=== PATIENT | female | born 1960 | race African-American/Black ===

== ENCOUNTER 2016-09-13 18:34 | Emergency (ER) | payer MEDICARE, OTHER ==
[~2016-09-13] VITALS: Ht 152.4 cm; Wt 80.0 kg
[~2016-09-13 18:34] MED LIST: ALBU1AER INH; AMLO5TAB22 PO; ASPI325T PO; CALC600T12 PO; CARD120C4 PO; CARV3.12 PO; CLOP75 PO; DOXY100T PO; ESCI10TA PO; FERR324T4 PO; FURO20 PO; GABA300C3 PO; HYDR-3129 PO; LEVA750T PO; LOSA25TA31 PO; METF-324 PO; PANT20 PO; PRED20 PO; ROSU5 PO; SPIR50 PO; SYNT75TA PO; TEMA30CA PO; TIZA4CAP PO; VITA200017 PO; ZOFR4TAB3 SL
[2016-09-13 18:37] VITALS: BP 174/111; PULSE 93; RESP 24; TEMP 98.4; O2SAT 93
== END 2016-09-13 20:00 | disposition left against medical advice (07) ==
LOC: NETRI 18:34
DX: R68.89 Other general symptoms and signs (principal)
CPT/HCPCS: 99281

== ENCOUNTER 2016-10-15 17:31 | Emergency (ER) | payer MEDICARE, OTHER ==
[~2016-10-15] VITALS: Ht 152.4 cm; Wt 82.5 kg
[2016-10-15 17:35] VITALS: BP 161/94; PULSE 103; RESP 24; TEMP 101.6; O2SAT 97
[2016-10-15] MEDS ORDERED: SODIUM CHLOR 0.9% 1000 ML INJ 700 ML IV ONE (18:14)
[2016-10-15] MEDS ORDERED: SODIUM CHLOR 0.9% 1000 ML INJ 1,000 ML IV ONE ×2 (18:14)
[2016-10-15] MEDS ORDERED: ACETAMINOPHEN 325 MG TAB PO ONE (18:15)
[2016-10-15] MEDS ORDERED: ONDANSETRON HCL 4 MG/2 ML VIAL IV PUSH ONE (18:15)
--- NOTE | 2016-10-15 18:22 | PD ---
HPI . Chest pain Chief Complaint: Chest Pain Time Seen by Provider: 18:08 Travel History International Travel<30 days: No Contact w/Intl Traveler<30days: No Traveled to known affect area: No History of Present Illness HPI Patient presents with a chief complaint of chest pain that started at 10 AM. She states that it is getting worse rather than better. She states that it is heavy and rates it as a 10 out of 10 currently. It has been unrelieved by 2 sublingual nitroglycerin at home. Her chest pain is associated with nausea, weakness, myalgias, shortness of breath and fever. She denies any known sick contacts. Patient reports a history of 9 previous MIs with 8 stents. Further medical history includes hypertension, diabetes, hyperlipidemia, COPD both thyroidism. [id number]: Chest QUALITY: Heavy SEVERITY:10/10 DURATION: Since 10 AM TIMING: Constant CONTEXT: Numerous chronic medical problems MODIFYING FACTORS: Unrelieved by nitroglycerin ASSOCIATED SYMPTOMS: Associated with fever, nausea, weakness, shortness of breath and myalgias PFSH Past Medical History Arthritis: Yes Autoimmune Disease: No Blood Disorders: No Anxiety: No Depression: No Heart Rhythm Problems: No Cancer: No Cardiac Catheterization: Yes (SEVERAL) Cardiovascular Problems: Yes High Cholesterol: Yes Chest Pain: Yes Congestive Heart Failure: No Cerebrovascular Accident: Yes (2008) Diabetes: Yes Patient Takes Glucophage: Yes (10/14/16 2100) Diminished Hearing: No Endocrine: Yes Gastrointestinal Disorders: No GERD: Yes Genitourinary: No Headaches: Yes Hypertension: Yes Immune Disorder: No Implanted Vascular Access Dvce: Yes Musculoskeletal: Yes (BULGING DISCS IN BACK) Neurologic: Yes Psychiatric: No Reproductive: No Respiratory: Yes Immunizations Current: Yes Migraines: Yes Myocardial Infarction: Yes (x9) Sickle Cell Disease: No Thyroid Disease: No Tetanus Vaccination: < 5 Years ?: Not Menopausal: Yes : 2 Para: 2 Past Surgical History Abdominal Surgery: Yes Appendectomy: Yes Body Medical Devices: CORONARY STENT(S) Cardiac Surgery: Yes Coronary Artery Bypass Graft: No Coronary Stent: Yes (X 8) Tonsillectomy: No Other Surgery: Yes Family History Family Myocardial Infarction: Yes Social History Alcohol Use: No Tobacco Use: No Substance Use: No Allergies-Medications (Allergen,Severity, Reaction): Coded Allergies: No Known Allergies (Verified , 10/15/16) Reported Meds & Prescriptions Reported Meds & Active Scripts Active Zofran Odt (Ondansetron Odt) 4 Mg Tab 4 Mg SL Q6HR PRN Reported Proair Hfa 8.5 GM Inh (Albuterol Sulfate) 90 Mcg/Act Aer 1 Puff INH Q4H PRN 108 mcg/actuation Amlodipine (Amlodipine Besylate) 5 Mg Tab 5 Mg PO DAILY Aspirin 325 Mg Tab 325 Mg PO DAILY Calcium (Calcium Carbonate) 600 Mg Tab 1,200 Mg PO BID Diltiazem CD 24 HR 120 Mg Caper 120 Mg PO DAILY Carvedilol 3.125 Mg Tab 3.125 Mg PO BID Vitamin D-3 (Cholecalciferol) 2,000 Unit Tab 2,000 Units PO DAILY Plavix (Clopidogrel Bisulfate) 75 Mg Tab 75 Mg PO DAILY Escitalopram (Escitalopram Oxalate) 10 Mg Tab 10 Mg PO DAILY Ferrous Sulfate 325 Mg Tab 325 Mg PO DAILY Lasix (Furosemide) 40 Mg Tab 40 Mg PO DAILY Gabapentin 300 Mg Cap 300 Mg PO Q8HR [place] (Hydrocodone-Acetaminophen) 10-325 Mg Tab 1 Tab PO Q12HR PRN Losartan (Losartan Potassium) 25 Mg Tab 25 Mg PO DAILY Metformin ER (Metformin HCl) 1,000 Mg Artemio 1,000 Mg PO BID With evening meal Zofran Odt (Ondansetron Odt) 4 Mg Tab 4 Mg SL Q6HR PRN Pantoprazole (Pantoprazole Sodium) 20 Mg Tab 20 Mg PO DAILY Synthroid (Levothyroxine Sodium) 75 Mcg Tab 75 Mcg PO DAILY Restoril (Temazepam) 30 Mg Cap 30 Mg PO HS PRN Crestor (Rosuvastatin Calcium) 20 Mg Tab 20 Mg PO HS Tizanidine (Tizanidine HCl) 4 Mg Tab 4-8 Mg PO TID Review of Systems Except as stated in HPI: all other systems reviewed are Neg General / Constitutional: Positive: Fever, Chills HENT: No: Sore Throat, Rhinorrhea, Congestion Cardiovascular: Positive: Chest Pain or Discomfort Respiratory: Positive: Shortness of Breath, No: Cough Gastrointestinal: Positive: Nausea, No: Vomiting, Diarrhea Genitourinary: No: Urgency, Frequency, Dysuria Musculoskeletal: Positive: Myalgias, Weakness Physical Exam Narrative GENERAL: Pleasant woman who is in no acute distress. SKIN: Warm and dry. HEAD: Atraumatic. Normocephalic. EYES: Pupils equal and round. ENT: No nasal bleeding or discharge. Mucous membranes pink and moist. NECK: Trachea midline. Neck is supple with no cervical lymphadenopathy. CARDIOVASCULAR: Regular rate and rhythm. Heart sounds are normal. RESPIRATORY: No accessory muscle use. Lungs sound clear with full air movement throughout. GASTROINTESTINAL: Abdomen soft, non-tender, nondistended. MUSCULOSKELETAL: No obvious deformities. No edema. NEUROLOGICAL: Awake and alert. No obvious cranial nerve deficits. Motor grossly within normal limits. Normal speech. PSYCHIATRIC: Appropriate mood and affect; insight and judgment normal. Data Data Last Documented VS Vital Signs Date Time Temp Pulse Resp B/P Pulse Ox O2 Delivery O2 Flow Rate FiO2 10/15/16 18:31 96 10/15/16 18:07 94 18 Room Air 10/15/16 17:35 101.6 161/94 Orders Complete Blood Count With Diff (10/15/16 18:14) Comprehensive Metabolic Panel (10/15/16 18:14) Lactic Acid Sepsis Protocol (10/15/16 18:14) Ckmb (Isoenzyme) Profile (10/15/16 18:14) Troponin I (10/15/16 18:14) Urinalysis - C+S If Indicated (10/15/16 18:14) Influenzae A/B Antigen (10/15/16 18:14) Blood Culture (10/15/16 18:14) Chest, Single Ap (10/15/16 18:14) Ecg Monitoring (10/15/16 18:14) Iv Access Insert/Monitor (10/15/16 18:14) Oximetry (10/15/16 18:14) Acetaminophen (Tylenol) (10/15/16 18:15) Sodium Chlor 0.9% 1000 Ml Inj (Ns 1000 M (10/15/16 18:14) Sodium Chlor 0.9% 1000 Ml Inj (Ns 1000 M (10/15/16 18:14) Sodium Chlor 0.9% 1000 Ml Inj (Ns 1000 M (10/15/16 18:14) Ondansetron Inj (Zofran Inj) (10/15/16 18:15) CKMB (10/15/16 18:20) CKMB% (10/15/16 18:20) Labs Laboratory Tests Test 3/20/17 3/20/17 3/20/17 18:20 18:28 18:48 White Blood Count 12.1 TH/MM3 Red Blood Count 4.27 MIL/MM3 Hemoglobin 10.3 GM/DL Hematocrit 33.0 % Mean Corpuscular Volume 77.3 FL Mean Corpuscular Hemoglobin 24.1 PG Mean Corpuscular Hemoglobin 31.2 % Concent Red Cell Distribution Width 16.5 % Platelet Count 255 TH/MM3 Mean Platelet Volume 8.9 FL Neutrophils (%) (Auto) 77.1 % Lymphocytes (%) (Auto) 15.4 % Monocytes (%) (Auto) 6.4 % Eosinophils (%) (Auto) 0.7 % Basophils (%) (Auto) 0.4 % Neutrophils # (Auto) 9.3 TH/MM3 Lymphocytes # (Auto) 1.9 TH/MM3 Monocytes # (Auto) 0.8 TH/MM3 Eosinophils # (Auto) 0.1 TH/MM3 Basophils # (Auto) 0.0 TH/MM3 CBC Comment AUTO DIFF Differential Comment AUTO DIFF CONFIRMED Platelet Estimate NORMAL Platelet Morphology Comment NORMAL Sodium Level 139 MEQ/L Potassium Level 3.8 MEQ/L Chloride Level 98 MEQ/L Carbon Dioxide Level 30.2 MEQ/L Anion Gap 11 MEQ/L Blood Urea Nitrogen 12 MG/DL Creatinine 1.06 MG/DL Estimat Glomerular Filtration 64 ML/MIN Rate Random Glucose 99 MG/DL Calcium Level 8.7 MG/DL Total Bilirubin 0.5 MG/DL Aspartate Amino Transf 14 U/L (AST/SGOT) Alanine Aminotransferase 15 U/L (ALT/SGPT) Alkaline Phosphatase 96 U/L Total Creatine Kinase 163 U/L Creatine Kinase MB LESS THAN 0.5 NG/ML Troponin I LESS THAN 0.02 NG/ML Total Protein 7.9 GM/DL Albumin 3.7 GM/DL Lactic Acid Level 1.1 mmol/L Urine Color LIGHT-YELLOW Urine Turbidity CLEAR Urine pH 8.5 Urine Specific [place] 1.012 Urine Protein TRACE mg/dL Urine Glucose (UA) NEG mg/dL Urine Ketones NEG mg/dL Urine Occult Blood NEG Urine Nitrite NEG Urine Bilirubin NEG Urine Urobilinogen LESS THAN 2.0 MG/DL Urine Leukocyte Esterase NEG Urine RBC 2 /hpf Urine WBC LESS THAN 1 /hpf Urine Squamous Epithelial <1 /hpf Cells Urine Mucus FEW /lpf Microscopic Urinalysis Comment CATH-CULT NOT IND MDM Medical Decision Making Medical Screen Exam Complete: Yes Emergency Medical Condition: Yes Interpretation(s) EKG shows a sinus rhythm with no ST segment elevation or depression. Her EKG is unchanged from previous. Differential Diagnosis Differential diagnosis of chest pain includes but is not limited to musculoskeletal pain, pulmonary embolism, acute coronary syndrome, pneumonia, pleurisy Differential diagnosis of fever includes but is not limited to viral illness, strep throat, otitis media, pneumonia, sepsis, UTI Narrative Course Patient presents for chest pain associated with fever, shortness of breath, nausea, weakness and myalgias. She'll be worked up for possible sepsis and she will also be worked up to rule out ACS. Last Impressions Chest X-Ray 10/15/[id number] Signed Impressions: Service Date/Time: Saturday, October 15, 2016 18:26 - CONCLUSION: No acute disease. No significant change has occurred. Smith Morales MD The chest x-ray was independently viewed by me. Flu screen is negative. CBC & BMP Diagram 10/15/16 18:20 Cardiac enzymes are negative. UA is negative. Lactic acid is normal. This patient presents with chest pain and fever. Her workup in the emergency department has been negative. She looks good. I will discharge her to home. Diagnosis Primary Impression: Chest pain Qualified Code: R07.9 - Chest pain, unspecified type Additional Impression: Viral syndrome Patient Instructions: General Instructions, Viral Syndrome (DC) Scripts Ondansetron Odt (Zofran Odt)4 Mg Tab4 Mg SL Q6HR PRN (Nausea/Vomiting) #30 TAB Ref 0 Prov:Haleigh Fletcher MD 10/15/16 Disposition: 01 DISCHARGE HOME Condition: Stable Haleigh Fletcher MD Oct 15, 2016 18:22
[2016-10-15 18:31] VITALS: O2SAT 96
[2016-10-15] MEDS ORDERED: TIZA4TAB PO (18:38)
--- NOTE | 2016-10-15 18:38 | RADRPT ---
EXAM DATE/TIME: 10/15/2016 18:26 [facility] COMPARISON: CHEST SINGLE AP, July 12, 2016, 7:24. INDICATIONS : Chest pain, short of breath MEDICAL HISTORY : Cardiovascular disease. SURGICAL HISTORY : Coronary artery stent. ENCOUNTER: Initial ACUITY: 1 day PAIN SCORE: 9/10 LOCATION: chest FINDINGS: A single view of the chest demonstrates the lungs to be symmetrically aerated without evidence of mas s, infiltrate or effusion. The heart size is enlarged but stable.. Osseous structures are intact. CONCLUSION: No acute disease. No significant change has occurred. Smith Morales MD on October 15, 2016 at 18:36 Board Certified Radiologist. This report was verified electronically.
[2016-10-15 18:47] LABS: AUTOMATED NEUTROPHIL # 9.3 TH/MM3 (1.8-7.7); BASOPHIL % 0.4 % (0.0-2.0); EOSINOPHIL # 0.1 TH/MM3 (0-0.4); EOSINOPHIL % 0.7 % (0.0-4.0); LYMPH % 15.4 % (9.0-44.0); LYMPHOCYTE # 1.9 TH/MM3 (1.0-4.8); MEAN CELL VOLUME 77.3 FL (80.0-100.0); MEAN CORPUSCULAR HEMOGLOBIN 24.1 PG (27.0-34.0); MEAN CORPUSCULAR HGB CONC 31.2 % (32.0-36.0); MONO % 6.4 % (0.0-8.0); NEUT % 77.1 % (16.0-70.0); PLATELET COUNT 255 TH/MM3 (150-450); RED BLOOD COUNT 4.27 MIL/MM3 (4.00-5.30); RED CELL DISTRIBUTION WIDTH 16.5 % (11.6-17.2); WHITE BLOOD COUNT 12.1 TH/MM3 (4.0-11.0)
[2016-10-15] MEDS ORDERED: CHOL1TAB42 PO (18:48)
[2016-10-15] MEDS ORDERED: ROSU20 PO (18:48)
[2016-10-15] MEDS ORDERED: HYDR-3366 PO (18:48)
[2016-10-15] MEDS ORDERED: REST30CA PO (18:48)
[2016-10-15] MEDS ORDERED: ZOFR4TAB3 SL ×2 (18:48→19:23)
[2016-10-15] MEDS ORDERED: DILT-60 PO (18:48)
[2016-10-15] MEDS ORDERED: GABA300C5 PO (18:48)
[2016-10-15] MEDS ORDERED: METF-382 PO (18:48)
[2016-10-15] MEDS ORDERED: LOSA25TA PO (18:48)
[2016-10-15] MEDS ORDERED: ALBUAER3 INH (18:48)
[2016-10-15] MEDS ORDERED: ESCI10TA PO (18:48)
[2016-10-15] MEDS ORDERED: ASPI325T PO (18:48)
[2016-10-15] MEDS ORDERED: CALC600T25 PO (18:48)
[2016-10-15] MEDS ORDERED: AMLO5TAB2 PO (18:48)
[2016-10-15] MEDS ORDERED: FURO1TAB60 PO (18:48)
[2016-10-15] MEDS ORDERED: CARV3.12 PO (18:48)
[2016-10-15] MEDS ORDERED: PLAV75TA29 PO (18:48)
[2016-10-15] MEDS ORDERED: LEVO.075 PO (18:48)
[2016-10-15] MEDS ORDERED: FERR325T PO (18:48)
[2016-10-15] MEDS ORDERED: PANT20TA2 PO (18:48)
[2016-10-15 18:50] LABS: HEMO FLAGS AUTO DIFF
[2016-10-15 18:59] LABS: ANION GAP 11 MEQ/L (5-15); AST (GOT) 14 U/L (15-37); BICARBONATE 30.2 MEQ/L (21.0-32.0); BLOOD UREA NITROGEN 12 MG/DL (7-18); CHLORIDE 98 MEQ/L (98-107); GLOMERULAR FILTRATION RATE 64 ML/MIN (>89); POTASSIUM 3.8 MEQ/L (3.5-5.1); SODIUM (NA) 139 MEQ/L (136-145)
[2016-10-15 19:04] LABS: ALKALINE PHOSPHATASE 96 U/L (45-117); ALT (GPT) 15 U/L (10-53); CREATINE KINASE 163 U/L (26-192); TOTAL BILIRUBIN ADULT 0.5 MG/DL (0.2-1.0)
[2016-10-15 19:12] LABS: BLOOD, URINE NEG (NEG); GLUCOSE,URINE NEG (NEG); KETONE, URINE NEG (NEG); MUCUS URINE FEW /lpf (OCC); NITRITE,URINE NEG (NEG); PH, URINE 8.5 (5.0-8.5); SQUAMOUS EPITHELIAL CELL URINE <1 /hpf (0-5); URINE COLOR LIGHT-YELLOW (YELLW/STRAW)
[2016-10-15 19:15] LABS: COMMENT (UR) CATH-CULT NOT IND; CULTURE IF INDICATED CATH CULTURE NOT IND
[2016-10-15 19:16] LABS: CKMB LESS THAN 0.5 NG/ML (0.5-3.6)
[2016-10-15 19:21] LABS: PLATELET ESTIMATE SMEAR NORMAL (NORMAL); PLATELET MORPHOLOGY NORMAL (NORMAL); SCAN/DIFF AUTO DIFF CONFIRMED
[2016-10-15 20:05] VITALS: BP 132/80; RESP 16; TEMP 99
--- NOTE | 2016-10-16 10:13 | EKG ---
Date Performed: 10/15/2016 Time Performed: 18:06:03 PTAGE: 56 years EKG: Sinus rhythm BORDERLINE LEFT AXIS DEVIATION NONSPECIFIC T-WAVE ABNORMALITY BORDERLINE ECG INTERPRETATION BASED ON A DEFAULT AGE OF 38 YEARS PREVIOUS TRACING : 07/12/2016 06.41 DOCTOR: Álvaro Ambriz Interpretating Date/Time 10/16/2016 10:12:15
== END 2016-10-15 20:55 | disposition home or self-care (01) ==
LOC: NEPA 17:31
DX: R07.9 Chest pain, unspecified (principal); B34.9 Viral infection, unspecified; R94.31 Abnormal electrocardiogram [ECG] [EKG]; J44.9 Chronic obstructive pulmonary disease, unspecified; I10 Essential (primary) hypertension; E11.9 Type 2 diabetes mellitus without complications; I25.2 Old myocardial infarction; Z95.5 Presence of coronary angioplasty implant and graft; Z79.84 Long term (current) use of oral hypoglycemic drugs
CPT/HCPCS: 71010; 80053; 81001; 82550; 82552; 83605; 84484; 85025; 87040; 87804; 93005; 96361; 96374; 99285; J2405; J7030

== ENCOUNTER 2016-10-24 19:31 | Inpatient (IN) | payer MEDICARE, OTHER ==
[2016-10-24] VITALS (14 sets, daily range): BP systolic 81–144; BP diastolic 61–79; PULSE 74–84; RESP 16–27; TEMP 98.2; O2SAT 95–100
[~2016-10-24] VITALS: Ht 165.1 cm; Wt 93.6 kg
[~2016-10-24 19:31] MED LIST changes: -ALBU1AER INH; +ALBUAER3 INH; +AMLO5TAB2 PO; -AMLO5TAB22 PO; -CALC600T12 PO; +CALC600T25 PO; -CARD120C4 PO; +CHOL1TAB42 PO; -CLOP75 PO; +DILT-60 PO; -DOXY100T PO; -FERR324T4 PO; +FERR325T PO; +FURO1TAB60 PO; -FURO20 PO; -GABA300C3 PO; +GABA300C5 PO; -HYDR-3129 PO; +HYDR-3366 PO; -LEVA750T PO; +LEVO.075 PO; +LOSA25TA PO; -LOSA25TA31 PO; -METF-324 PO; +METF-382 PO; -PANT20 PO; +PANT20TA2 PO; +PLAV75TA29 PO; -PRED20 PO; +REST30CA PO; +ROSU20 PO; -ROSU5 PO; -SPIR50 PO; -SYNT75TA PO; -TEMA30CA PO; -TIZA4CAP PO; +TIZA4TAB PO; -VITA200017 PO
[2016-10-24] MEDS ORDERED: ETOMIDATE 20 MG/10 ML VIAL ONE (19:37)
[2016-10-24] MEDS ORDERED: ROCURONIUM INJ 50 MG/5 ML VIAL ONE (19:38)
[2016-10-24] MEDS ORDERED: AZITHROMYCIN INJ 500 MG in SODIUM CHLOR 0.9% 250 ML INJ 250 ML IV STA (19:49)
[2016-10-24] MEDS ORDERED: CEFEPIME INJ 2,000 MG in SODIUM CHLORIDE 0.9% INJ 100 ML IV STA (19:49)
--- NOTE | 2016-10-24 19:59 | PD ---
HPI Chief Complaint: Code Blue Time Seen by Provider: 19:49 Travel History International Travel<30 days: No Contact w/Intl Traveler<30days: No (unable to assess at time of arrival secondary to intubation) History of Present Illness HPI 56-year-old female arrives following cardiac arrest. Total time of ACLS resuscitation with chest compressions approximated to be 30 minutes per EMS. The patient complained of extreme short of breath followed by loss of consciousness and the family called EMS. The patient had been unresponsive for about 2-3 minutes prior to EMS arrival. Immediately he began ACLS protocol. Chest compressions started. A Combitube was placed. The patient received 4 rounds of epi and 100 mEq of a percent bicarbonate, 2 mg Narcan and calcium was also administered. The patient remained asystolic and tell ER arrival where she had return of circulation on the ramp into the ER. Upon arrival heart rate about 150 with a blood pressure about 140/80. O2 sat 99% with Combitube. EMS heard rales on their exam. When the patient arrived a Combitube was placed with a 7.5 endotracheal tube without difficulty. She has had pulses throughout her ER stay. The blood pressure increased to about 220/147 and the heart rate was 155 or so. EKG revealed a supraventricular irregular tachycardia. She received 20 mg of Cardizem and the heart rate decreased to about 80s the blood pressure decreased to about 140/80. PFSH Past Medical History Arthritis: Yes Autoimmune Disease: No Blood Disorders: No Anxiety: No Depression: No Heart Rhythm Problems: No Cancer: No Cardiac Catheterization: Yes (SEVERAL) Cardiovascular Problems: Yes High Cholesterol: Yes Chest Pain: Yes Congestive Heart Failure: No Cerebrovascular Accident: Yes (2008) Diabetes: Yes Diminished Hearing: No Endocrine: Yes Gastrointestinal Disorders: No GERD: Yes Genitourinary: No Headaches: Yes Hypertension: Yes Immune Disorder: No Implanted Vascular Access Dvce: Yes Musculoskeletal: Yes (BULGING DISCS IN BACK) Neurologic: Yes Psychiatric: No Reproductive: No Respiratory: Yes Immunizations Current: Yes Migraines: Yes Myocardial Infarction: Yes (x9) Sickle Cell Disease: No Thyroid Disease: No Menopausal: Yes : 2 Para: 2 Past Surgical History Abdominal Surgery: Yes Appendectomy: Yes Body Medical Devices: CORONARY STENT(S) Cardiac Surgery: Yes Coronary Artery Bypass Graft: No Coronary Stent: Yes (X 8) Tonsillectomy: No Other Surgery: Yes Social History Alcohol Use: No Tobacco Use: No Substance Use: No Allergies-Medications (Allergen,Severity, Reaction): Coded Allergies: No Known Allergies (Verified , 10/15/16) Reported Meds & Prescriptions Reported Meds & Active Scripts Active Reported Proair Hfa 8.5 GM Inh (Albuterol Sulfate) 90 Mcg/Act Aer 1 Puff INH Q4H PRN 108 mcg/actuation Amlodipine (Amlodipine Besylate) 5 Mg Tab 5 Mg PO DAILY Aspirin 325 Mg Tab 325 Mg PO DAILY Calcium (Calcium Carbonate) 600 Mg Tab 1,200 Mg PO BID Diltiazem CD 24 HR 120 Mg Caper 120 Mg PO DAILY Carvedilol 3.125 Mg Tab 3.125 Mg PO BID Vitamin D-3 (Cholecalciferol) 2,000 Unit Tab 2,000 Units PO DAILY Plavix (Clopidogrel Bisulfate) 75 Mg Tab 75 Mg PO DAILY Escitalopram (Escitalopram Oxalate) 10 Mg Tab 10 Mg PO DAILY Ferrous Sulfate 325 Mg Tab 325 Mg PO DAILY Lasix (Furosemide) 40 Mg Tab 40 Mg PO DAILY Gabapentin 300 Mg Cap 300 Mg PO Q8HR [place] (Hydrocodone-Acetaminophen) 10-325 Mg Tab 1 Tab PO Q12HR PRN Losartan (Losartan Potassium) 25 Mg Tab 25 Mg PO DAILY Metformin ER (Metformin HCl) 1,000 Mg Artemio 1,000 Mg PO BID With evening meal Zofran Odt (Ondansetron Odt) 4 Mg Tab 4 Mg SL Q6HR PRN Pantoprazole (Pantoprazole Sodium) 20 Mg Tab 20 Mg PO DAILY Synthroid (Levothyroxine Sodium) 75 Mcg Tab 75 Mcg PO DAILY Restoril (Temazepam) 30 Mg Cap 30 Mg PO HS PRN Crestor (Rosuvastatin Calcium) 20 Mg Tab 20 Mg PO HS Tizanidine (Tizanidine HCl) 4 Mg Tab 4-8 Mg PO TID Review of Systems ROS Limitations: Intubated, Altered Mental Status Physical Exam Narrative GENERAL: 56-year-old female, severe distress, GCS 4T (eyes 1, motor 2, verbal 1) SKIN: Skin is warm/dry. HEAD: Atraumatic. Normocephalic. EYES: Pupils are approximately 2 mm. They are equal and reactive to light. ENT: Intubated with a Combitube. Edentulous. NECK: Trachea midline. No JVD. CARDIOVASCULAR: Irregular. Radial artery pulse appreciated bilaterally and at the dorsalis pedis bilaterally. RESPIRATORY: Combitube. Breath sounds present bilaterally. Coarse breath sounds bilaterally. GASTROINTESTINAL: Somewhat distended. No peritonitis. MUSCULOSKELETAL: No obvious deformities. No clubbing. No cyanosis. No edema. Right tibia intraosseous line intact. NEUROLOGICAL: GCS 4T (eyes 1 motor 2 verbal 1). The patient rotated her head once or twice during the initial resuscitation. PSYCHIATRIC: Unable to assess Data Data Last Documented VS Vital Signs Date Time Temp Pulse Resp B/P Pulse Ox O2 Delivery O2 Flow Rate FiO2 10/24/16 21:48 97 100 10/24/16 21:45 76 16 108/75 10/24/16 21:38 98.2 10/24/16 20:16 Ventilator Orders Etomidate Inj (Amidate Inj) (10/24/16 19:37) Rocuronium Inj (Zemuron Inj) (10/24/16 19:38) Chest, Single Ap (10/24/16 19:46) Complete Blood Count With Diff (10/24/16 19:49) Comprehensive Metabolic Panel (10/24/16 19:49) Prothrombin Time / Inr (Pt) (10/24/16 19:49) Act Partial Throm Time (Ptt) (10/24/16 19:49) Lactic Acid Sepsis Protocol (10/24/16 19:49) Magnesium (Mg) (10/24/16 19:49) Lipase (10/24/16 19:49) Ckmb (Isoenzyme) Profile (10/24/16 19:49) Troponin I (10/24/16 19:49) Urinalysis - C+S If Indicated (10/24/16 19:49) Blood Culture (10/24/16 19:49) Arterial Blood Gas (Abg) (10/24/16 19:49) Blood Glucose (10/24/16 19:49) Ecg Monitoring (10/24/16 19:49) Iv Access Insert/Monitor (10/24/16 19:49) Cath For Specimen (10/24/16 19:49) Oximetry (10/24/16 19:49) Oxygen Administration (10/24/16 19:49) Urinary Catheter Insert/Apply (10/24/16 19:49) Ct Brain W/O Iv Contrast(Rout) (10/24/16 19:49) Cefepime Inj (Maxipime Inj) (10/24/16 19:49) Azithromycin Inj (Zithromax Inj) (10/24/16 19:49) B-Type Natriuretic Peptide (10/24/16 19:49) Diltiazem Inj (Cardizem Inj) (10/24/16 20:00) Diltiazem Inj (Cardizem Inj) (10/24/16 20:00) Diltiazem Inj (Cardizem Inj) (10/24/16 20:00) Ct Pulmonary Angiogram (10/24/16 19:59) ^ Orogastric Tube (10/24/16 20:03) Propofol 1000 Mg/100 Ml Inj (Diprivan 10 (10/24/16 20:15) Propofol 200 Mg/20 Ml Inj (Diprivan 200 (10/24/16 20:15) Electrocardiogram (10/24/16 19:40) Furosemide Inj (Lasix Inj) (10/24/16 20:30) Urine Culture (10/24/16 19:50) Propofol 200 Mg/20 Ml Inj (Diprivan 200 (10/24/16 21:15) Lorazepam Inj (Ativan Inj) (10/24/16 21:15) CKMB (10/24/16 19:50) CKMB% (10/24/16 19:50) Sodium Chlor 0.9% 1000 Ml Inj (Ns 1000 M (10/24/16 21:30) Fosphenytoin Inj (Cerebyx Inj) (10/24/16 22:15) Admit Order (Ed Use Only) (10/24/16 21:52) Resp Ventilation- Volume (10/24/16 ) Ct Abd/Pel W Iv Contrast(Rout) (10/24/16 19:49) Labs Laboratory Tests Test 10/24/16 10/24/16 19:49 19:50 Blood Gas Puncture Site LT RADIAL Blood Gas Patient Temperature 98.6 Blood Gas HCO3 19 mmol/L Blood Gas Base Excess -8.5 mmol/L Blood Gas Oxygen Saturation 98 % Arterial Blood pH 7.14 Arterial Blood Partial 58 mmHg Pressure CO2 Arterial Blood Partial 177 mmHG Pressure O2 Arterial Blood Oxygen Content 14.8 Vol % Arterial Blood 0.2 % Carboxyhemoglobin Arterial Blood Methemoglobin 0.4 % Blood Gas Hemoglobin 10.5 G/DL Oxygen Delivery Device VENTILATOR Blood Gas Ventilator Setting VAC16/500/PEEP5 Blood Gas Inspired Oxygen 100 % White Blood Count 13.1 TH/MM3 Red Blood Count 4.11 MIL/MM3 Hemoglobin 10.2 GM/DL Hematocrit 33.2 % Mean Corpuscular Volume 80.8 FL Mean Corpuscular Hemoglobin 24.8 PG Mean Corpuscular Hemoglobin 30.7 % Concent Red Cell Distribution Width 17.2 % Platelet Count 328 TH/MM3 Mean Platelet Volume 9.2 FL Neutrophils (%) (Auto) 34.1 % Lymphocytes (%) (Auto) 60.2 % Monocytes (%) (Auto) 4.2 % Eosinophils (%) (Auto) 1.3 % Basophils (%) (Auto) 0.2 % Neutrophils # (Auto) 4.5 TH/MM3 Lymphocytes # (Auto) 7.9 TH/MM3 Monocytes # (Auto) 0.5 TH/MM3 Eosinophils # (Auto) 0.2 TH/MM3 Basophils # (Auto) 0.0 TH/MM3 CBC Comment AUTO DIFF Differential Total Cells 100 Counted Neutrophils % (Manual) 26 % Band Neutrophils % 1 % Lymphocytes % 62 % Monocytes % 5 % Eosinophils % 1 % Basophils % 1 % Neutrophils # (Manual) 4.1 TH/MM3 Myelocytes 3 % Promyelocytes 1 % Nucleated Red Blood Cells 2 /100 WBC Differential Comment FINAL DIFF MANUAL Platelet Estimate NORMAL Platelet Morphology Comment NORMAL Ovalocytes 1+ Keratocytes OCC Prothrombin Time 10.9 SEC Prothromb Time International 1.0 RATIO Ratio Activated Partial 19.6 SEC Thromboplast Time Urine Color LIGHT-YELLOW Urine Turbidity HAZY Urine pH 7.5 Urine Specific [place] 1.014 Urine Protein GREATER THAN 600 mg/dL Urine Glucose (UA) 300 mg/dL Urine Ketones TRACE mg/dL Urine Occult Blood MOD Urine Nitrite NEG Urine Bilirubin NEG Urine Urobilinogen LESS THAN 2.0 MG/DL Urine Leukocyte Esterase NEG Urine RBC 73 /hpf Urine WBC 12 /hpf Urine Squamous Epithelial 4 /hpf Cells Urine Bacteria RARE /hpf Microscopic Urinalysis Comment CATH-CULTURE IND Sodium Level 144 MEQ/L Potassium Level 3.4 MEQ/L Chloride Level 103 MEQ/L Carbon Dioxide Level 21.7 MEQ/L Anion Gap 19 MEQ/L Blood Urea Nitrogen 25 MG/DL Creatinine 1.60 MG/DL Estimat Glomerular Filtration 40 ML/MIN Rate Random Glucose 241 MG/DL Lactic Acid Level 13.1 mmol/L Calcium Level 10.1 MG/DL Magnesium Level 2.4 MG/DL Total Bilirubin 0.2 MG/DL Aspartate Amino Transf 28 U/L (AST/SGOT) Alanine Aminotransferase 23 U/L (ALT/SGPT) Alkaline Phosphatase 122 U/L Total Creatine Kinase 145 U/L Creatine Kinase MB 1.2 NG/ML Troponin I 0.08 NG/ML B-Type Natriuretic Peptide 1356 PG/ML Total Protein 7.0 GM/DL Albumin 3.1 GM/DL Lipase 91 U/L [facility] Medical Decision Making Medical Screen Exam Complete: Yes Emergency Medical Condition: Yes Medical Record Reviewed: Yes Differential Diagnosis Cardiopulmonary arrest, CHF, PE, stroke, sepsis Narrative Course CBC & BMP Diagram 10/24/16 19:50 Lactic acid 13 BNP 1326 LFTs are essentially normal Lipase normal UA: WBCs and RBCs present AB. BE -8.5 VAC 16/500/PEEP5 fio2 100% Last [address] Angiography 10/24/161958 Signed Impressions: Service Date/Time: Monday, October 24, 2016 22:13 - CONCLUSION: 1. No evidence of pulmonary embolism. 2. Diffuse infiltrates bilaterally consistent with severe pulmonary edema versus pneumonia with more consolidated areas within the lower lobes bilaterally. 2. Cardiomegaly. 3. Endotracheal tube has its tip at the level of the jody directed towards the right mainstem bronchus. This could be pulled back 2 cm for more optimal positioning. Danis Marti MD Head CT 10/24/161948 Signed Impressions: Service Date/Time: Monday, October 24, 2016 22:13 - CONCLUSION: No acute intracranial abnormality. Air-fluid level within the right maxillary sinus. Danis Marti MD Abdomen/Pelvis CT 10/24/161948 Signed Impressions: Service Date/Time: Monday, October 24, 2016 22:12 - CONCLUSION: 1. Questionable perfusion defects involving the left kidney suggesting possible mild acute pyelonephritis. Clinical correlation is recommended. 2. Tiny ventral wall hernia within the region of the umbilicus containing only fat. 3. Bilateral pulmonary infiltrates consistent with pulmonary edema versus pneumonia. 4. Pericholecystic fluid without gallbladder distention noted. If there is clinical concern for cholecystitis a hepatobiliary scan may be helpful to confirm cystic duct obstruction. Danis Marti MD Chest X-Ray 10/24/161945 Signed Impressions: Service Date/Time: Monday, October 24, 2016 20:05 - CONCLUSION: 1. Endotracheal tube appears to have its tip in the right mainstem bronchus. This could be pulled back 3 cm for more optimal positioning. 2. Cardiomegaly. 3. Moderate pulmonary vascular congestion bilaterally. Danis Marti MD EKG shows A. fib with RVR at a rate of 150 approximately The patient arrived to the ER as noted in the history present illness. Workup reveals pulmonary edema probable pneumonia. Head CT is normal. Occasional seizure-like activity has been observed, eyes rolled to the back of the patient' s head with tonic posturing lasting for about a second. Intervals between the seizure-like events very from 1 minute to a few minutes. Patient received Celebrex. Propofol drip initiated. Ativan 2 mg given twice. Versed drip started. Cefepime and azithromycin given. Patient will be placed in the [facility]. Discussed with Dr. Montero. Endotracheal tube repositioned twice with the lip line 20 cm prior to transfer upstairs. Case was discussed with Dr. Malik of cardiology who advised IV heparin. The repeat EKG showed T-wave inversions in V1 through V4 which appear new however no ST elevation was observed. IV heparin was started. Critical Care Narrative Aggregate critical care time was 60 minutes. Time to perform other separately billable procedures was not included in the critical care time. My time did not include minutes spent treating any other patients simultaneously or on activities that did not directly contribute to the patient's treatment. The services I provided to this patient were to treat and/or prevent clinically significant deterioration that could result in: Multiorgan failure, , permanent disability I provided critical care services requiring my management, as noted below: Chart data review, documentation time, medication orders and management, vital sign assessments/reviewing monitor data, ordering and reviewing lab tests, ordering and interpreting/reviewing x-rays and diagnostic studies, care of the patient and discussion of the patient with the admitting physicians. Procedures Procedure Narrative After the risks and benefits were discussed the following procedure was performed: INTUBATION: The patient was put in optimal position for the procedure. Rapid sequence intubation was initiated by me using 20 milligrams of etomidate IV and 50 milligrams of Rocuronium IV. The patient was intubated with a 7.5 cuffed endotracheal tube. Tube placement was confirmed by visualization of the tube and balloon passing through the cords, capnometry and subsequent chest x-ray. Breath sounds were equal and well aerated bilaterally postintubation. No breath sounds over stomach. Patient tolerated procedure well. Diagnosis Primary Impression: Cardiopulmonary arrest with successful resuscitation Additional Impression: Pulmonary edema Qualified Code: J81.0 - Acute pulmonary edema Admitting Information Admitting Physician Requests: Admit Vimal Addison MD Oct 24, 2016 19:59
[2016-10-24] MEDS ORDERED: DILTIAZEM HCL 25 MG/5 ML VIAL IV ONE ×2 (20:00)
[2016-10-24] MEDS ORDERED: DILTIAZEM INJ 125 MG in SODIUM CHLORIDE 0.9% INJ 100 ML IV SCH (20:00)
[2016-10-24] MEDS ORDERED: PROPOFOL 1000 MG/100 ML INJ 100 ML IV SCH (20:15)
[2016-10-24] MEDS ORDERED: PROPOFOL 200 MG/20 ML AMP IV ONE ×2 (20:15→21:15)
[2016-10-24 20:26] LABS: BLOOD GAS BASE EXCESS -8.5 mmol/L (-2-2); BLOOD GAS CARBOXYHEMOGLOBIN 0.2 % (0-4); BLOOD GAS HCO3 19 mmol/L (22-26); BLOOD GAS METHEMOGLOBIN 0.4 % (0-2); BLOOD GAS O2 HGB SATURATION 98 % (90-100); BLOOD GAS OXYGEN CONTENT 14.8 Vol % (12.0-20.0); BLOOD GAS PCO2 58 mmHg (38-42); BLOOD GAS PO2 177 mmHG (61-120); BLOOD GAS TOTAL HGB 10.5 G/DL (12.0-16.0); TEMP CORR TO 98.6
[2016-10-24 20:26] LABS: AUTOMATED NEUTROPHIL # 4.5 TH/MM3 (1.8-7.7); BASOPHIL % 0.2 % (0.0-2.0); EOSINOPHIL # 0.2 TH/MM3 (0-0.4); EOSINOPHIL % 1.3 % (0.0-4.0); HEMATOCRIT 33.2 % (35.0-46.0); LYMPH % 60.2 % (9.0-44.0); LYMPHOCYTE # 7.9 TH/MM3 (1.0-4.8); MEAN CELL VOLUME 80.8 FL (80.0-100.0); MEAN CORPUSCULAR HEMOGLOBIN 24.8 PG (27.0-34.0); MEAN CORPUSCULAR HGB CONC 30.7 % (32.0-36.0); MONO % 4.2 % (0.0-8.0); NEUT % 34.1 % (16.0-70.0); PLATELET COUNT 328 TH/MM3 (150-450); RED BLOOD COUNT 4.11 MIL/MM3 (4.00-5.30); RED CELL DISTRIBUTION WIDTH 17.2 % (11.6-17.2); WHITE BLOOD COUNT 13.1 TH/MM3 (4.0-11.0)
[2016-10-24 20:28] LABS: DRAW SITE LT RADIAL; FIO2 100 %; NUMBER OF ARTERIAL PUNCTURES 1; OXYGEN DEVICE VENTILATOR; STAT YES; ULNAR PULSE PRESENT; VENT SETTINGS VAC16/500/PEEP5
[2016-10-24 20:29] LABS: BACTERIA, URINE RARE /hpf; BLOOD, URINE MOD (NEG); COMMENT (UR) CATH-CULTURE IND; CULTURE IF INDICATED CATH CULTURE IND; GLUCOSE,URINE 300 mg/dL (NEG); KETONE, URINE TRACE mg/dL (NEG); NITRITE,URINE NEG (NEG); PH, URINE 7.5 (5.0-8.5); SQUAMOUS EPITHELIAL CELL URINE 4 /hpf (0-5); URINE COLOR LIGHT-YELLOW (YELLW/STRAW)
[2016-10-24] MEDS ORDERED: FUROSEMIDE 40 MG/4 ML VIAL IV PUSH ONE (20:30)
[2016-10-24 20:36] LABS: HEMO FLAGS AUTO DIFF
--- NOTE | 2016-10-24 20:40 | RADRPT ---
EXAM DATE/TIME: 10/24/2016 20:05 [facility] COMPARISON: CHEST SINGLE AP, October 15, 2016, 18:26. INDICATIONS : Intubation. MEDICAL HISTORY : Unobtainable. SURGICAL HISTORY : Unobtainable. ENCOUNTER: Initial ACUITY: 1 day PAIN SCORE: Non-responsive. LOCATION: Chest FINDINGS: The endotracheal tube appears to be located with its tip in the right mainstem bronchus. This could be pulled back approximately 3 cm for more optimal positioning. A nasogastric tube has its tip below the diaphragm. The heart is enlarged. Moderate pulmonary vascular congestion is noted bilaterally. CONCLUSION: 1. Endotracheal tube appears to have its tip in the right mainstem bronchus. This could be pulled b ack 3 cm for more optimal positioning. 2. Cardiomegaly. 3. Moderate pulmonary vascular congestion bilaterally. Danis Marti MD on October 24, 2016 at 20:30 Board Certified Radiologist. This report was verified electronically.
[2016-10-24 20:42] LABS: APTT (PATIENT) 19.6 SEC (24.3-30.1); PROTHROMBIN TIME - PATIENT 10.9 SEC (9.8-11.6)
[2016-10-24 21:07] LABS: ALKALINE PHOSPHATASE 122 U/L (45-117); ALT (GPT) 23 U/L (10-53); ANION GAP 19 MEQ/L (5-15); AST (GOT) 28 U/L (15-37); BICARBONATE 21.7 MEQ/L (21.0-32.0); BLOOD UREA NITROGEN 25 MG/DL (7-18); CHLORIDE 103 MEQ/L (98-107); CREATINE KINASE 145 U/L (26-192); GLOMERULAR FILTRATION RATE 40 ML/MIN (>89); MAGNESIUM 2.4 MG/DL (1.5-2.5); POTASSIUM 3.4 MEQ/L (3.5-5.1); SODIUM (NA) 144 MEQ/L (136-145); TOTAL BILIRUBIN ADULT 0.2 MG/DL (0.2-1.0)
[2016-10-24] MEDS ORDERED: LORazepam 2 MG/ML VIAL IV PUSH ONE ×2 (21:15→22:15)
[2016-10-24 21:20] LABS: CKMB 1.2 NG/ML (0.5-3.6)
[2016-10-24 21:21] LABS: BANDS 1 % (0-6); BASOPHILS 1 % (0-2); CORRECTED NUCLEATED RBC 2 /100 WBC (0-0); EOSINOPHILS 1 % (0-4); MYELOCYTES 3 % (0-0); NEUTROPHIL # MANUAL DIFF 4.1 TH/MM3 (1.8-7.7); POLYS (SEG NEUTROPHILS) 26 % (16-70); PROMYELOCYTES 1 % (0-0); WBC DIFF SAMPLE 100
[2016-10-24 21:25] LABS: KERATOCYTES OCC (NORMAL); OVALOCYTES 1+ (NORMAL)
[2016-10-24 21:26] LABS: PLATELET ESTIMATE SMEAR NORMAL (NORMAL); PLATELET MORPHOLOGY NORMAL (NORMAL)
[2016-10-24 21:27] LABS: SCAN/DIFF FINAL DIFF MANUAL
[2016-10-24] MEDS ORDERED: SODIUM CHLOR 0.9% 1000 ML INJ 1,000 ML IV ONE (21:30)
[2016-10-24] MEDS ORDERED: FOSPHENYTOIN INJ 1,000 MGPE in SODIUM CHLORIDE 0.9% INJ 50 ML IV ONE (22:15)
[2016-10-24 22:18] LABS: LACTIC ACID GHOST NOT REPORTABLE
[2016-10-24] MEDS ORDERED: IODIXANOL 320 MG/ML 10 ML VIAL (for Rad CT) IV ONE (22:27)
--- NOTE | 2016-10-24 22:39 | RADRPT ---
EXAM DATE/TIME: 10/24/2016 22:13 [facility] COMPARISON: CT BRAIN W/O CONTRAST, December 18, 2010, 11:42. INDICATIONS : Syncope and altered mental status. RADIATION DOSE: 56.35 CTDIvol (mGy) MEDICAL HISTORY : Non-responsive. SURGICAL HISTORY : Non-responsive. ENCOUNTER: Initial ACUITY: 1 day PAIN SCALE: Non-responsive LOCATION: cranial TECHNIQUE: Multiple contiguous axial images were obtained of the head. Using automated exposure control and adj ustment of the mA and/or kV according to patient size, radiation dose was kept as low as reasonably a chievable to obtain optimal diagnostic quality images. FINDINGS: CEREBRUM: The ventricles are normal for age. No evidence of midline shift, mass lesion, hemorrhage or acute in farction. No extra-axial fluid collections are seen. POSTERIOR FOSSA: The cerebellum and brainstem are intact. The 4th ventricle is midline. The cerebellopontine angle i s unremarkable. EXTRACRANIAL: The visualized portion of the orbits is intact. Air-fluid level noted within the right maxillary sinu s. SKULL: The calvaria is intact. No evidence of skull fracture. CONCLUSION: No acute intracranial abnormality. Air-fluid level within the right maxillary sinus. Danis Marti MD on October 24, 2016 at 22:36 Board Certified Radiologist. This report was verified electronically.
--- NOTE | 2016-10-24 22:47 | RADRPT ---
EXAM DATE/TIME: 10/24/2016 22:13 [facility] COMPARISON: CT PULMONARY ANGIOGRAM, January 16, 2016, 17:38. INDICATIONS : Found unresponsive. IV CONTRAST: 50 cc Visipaque (iodixanol) IV ; Cumulative dose for multiple exams. RADIATION DOSE: 15.47 CTDIvol (mGy) MEDICAL HISTORY : Non-responsive. SURGICAL HISTORY : Non-responsive. ENCOUNTER: Initial ACUITY: 1 day PAIN SCALE: Non-responsive LOCATION: Chest TECHNIQUE: Volumetric scanning of the chest was performed using a pulmonary embolism protocol MIP images were re constructed. Using automated exposure control and adjustment of the mA and/or kV according to patien t size, radiation dose was kept as low as reasonably achievable to obtain optimal diagnostic quality images. FINDINGS: There is no evidence of pulmonary embolism. The heart is enlarged. Bilateral pulmonary infiltrates are noted consistent with severe pulmonary edema versus pneumonia. More consolidated infiltrates are noted within the lower lobes bilaterally. No mediastinal, hilar or axillary lymphadenopathy is note d. The endotracheal tube is noted at the level of the jody directed towards the right mainstem bro nchus. This could be pulled back 2 cm for more optimal positioning. CONCLUSION: 1. No evidence of pulmonary embolism. 2. Diffuse infiltrates bilaterally consistent with severe pulmonary edema versus pneumonia with more consolidated areas within the lower lobes bilaterally. 2. Cardiomegaly. 3. Endotracheal tube has its tip at the level of the jody directed towards the right mainstem bron chus. This could be pulled back 2 cm for more optimal positioning. Danis Marti MD on October 24, 2016 at 22:37 Board Certified Radiologist. This report was verified electronically.
--- NOTE | 2016-10-24 22:57 | RADRPT ---
EXAM DATE/TIME: 10/24/2016 22:12 [facility] COMPARISON: CT ABDOMEN & PELVIS W CONTRAST, January 25, 2014, 3:30. INDICATIONS : Found unresponsive. ORAL CONTRAST: No oral contrast ingested. RADIATION DOSE: 17.47 CTDIvol (mGy) MEDICAL HISTORY : Non-responsive. SURGICAL HISTORY : Non-responsive. ENCOUNTER: Initial ACUITY: 1 day PAIN SCALE: Non-responsive LOCATION: Bilateral lower quadrant TECHNIQUE: Volumetric scanning of the abdomen and pelvis was performed. Using automated exposure control and ad justment of the mA and/or kV according to patient size, radiation dose was kept as low as reasonably achievable to obtain optimal diagnostic quality images. FINDINGS: Bilateral pulmonary infiltrates are noted consistent with pulmonary edema versus pneumonia. There ar e questionable areas of decreased perfusion involving the left kidney consistent with possible pyelon ephritis. Clinical correlation is recommended. There is no hydronephrosis or calcified stone on eit her side. The liver, spleen, pancreas and adrenal glands are unremarkable. The gallbladder is nondi stended. There is some pericholecystic fluid. If there is clinical concern for cholecystitis then a hepatobiliary scan may be helpful to confirm cystic duct obstruction. No bowel obstruction is noted . The abdominal aorta is calcified but is not aneurysmally dilated. The inferior vena cava is prakash l. There is no paraaortic, retroperitoneal or mesenteric lymphadenopathy. The urinary bladder is no ndistended and contains a Pablo catheter. The uterus is normal. There is a midline ventral abdomina l wall hernia in the region of the umbilicus containing only fat consistent with small hernia. CONCLUSION: 1. Questionable perfusion defects involving the left kidney suggesting possible mild acute pyeloneph ritis. Clinical correlation is recommended. 2. Tiny ventral wall hernia within the region of the umbilicus containing only fat. 3. Bilateral pulmonary infiltrates consistent with pulmonary edema versus pneumonia. 4. Pericholecystic fluid without gallbladder distention noted. If there is clinical concern for cho lecystitis a hepatobiliary scan may be helpful to confirm cystic duct obstruction. Danis Marti MD on October 24, 2016 at 22:46 Board Certified Radiologist. This report was verified electronically.
[2016-10-25] VITALS (25 sets, daily range): BP systolic 99–156; BP diastolic 68–88; PULSE 63–88; RESP 18–19; TEMP 93–98.6; O2SAT 0–100
[2016-10-25] MEDS ORDERED: HEPARIN-D5W INJ 250 ML IV SCH
[2016-10-25] MEDS ORDERED: HEPARIN SODIUM - IV 10,000 UNITS/10 ML VIAL IV ONE
--- NOTE | 2016-10-25 00:12 | HHI.HP ---
[facility] Service Critical Care Medicine Primary Care Physician Alec Vera, DO Admission Diagnosis Cardiopulmonary Arrest Diagnosis: Travel History International Travel<30 Days: No Contact w/Intl Traveler <30 Da: No (unable to assess at time of arrival secondary to intubation) Traveled to Known Affected Are: No History of Present Illness 56-year-old female with past medical history of hypertension, Coronary artery disease with multiple stents, Chronic systolic heart failure with ejection fraction of 45%, diabetes mellitus, stroke in 2008. She presented to [facility] emergency department via [facility] following asystolic cardiac arrest. Patient is not able to provide history. Some history was obtained from patient's sister, Thea Solares. Reportedly she had been having some epigastric discomfort since 10/24 afternoon as well as SOB. She was able to drive herself to the hospital to visit another family member. She later went home with her who is not in good health. She was walking down the [place] and began to call for help and then collapsed. She had previously called [facility] herself a few minutes before. Bystander CPR was not initiated. [facility] reportedly arrived 3 minutes after her collapse and she was in asystole. She was given Epi x4, bicarb x1, Narcan 2 mg , calcium, and Combitube was placed. She had ROSC upon arrival to ED. She was intubated by ED physician. She was noted to have a seizure in the ED that initially improved with ativan 2 mg IV but then recurred. She was loaded with fosphenytoin. She was given cardizem 15 mg IV for Afib RVR. She received cefepime, azithromycin 500 mg IV, and Lasix 40 g IV in the ED. CT brain is negative. CT pulmonary artery is negative for PE. There is pulmonary edema and bilateral lower lobe consolidation. Past Family Social History Allergies: Coded Allergies: No Known Allergies (Verified , 10/15/16) Past Medical History Hypertension Diabetes Hyperlipidemia Ischemic cardiomyopathy with chronic systolic heart failure with ejection fraction 45% on prior cardiac catheterization 03/02/16 Coronary artery disease with multiple prior stents Stroke in 2008 Obesity GERD CKD stage III Hypothyroidism Depression Peripheral neuropathy Past Surgical History Multiple coronary stents Appendectomy at age 6 Reported Medications Zofran 4 g of medical every 6 hours as needed for nausea Losartan 25 mg by mouth daily Gabapentin 300 mg by mouth every 8 hours Escitalopram 10 mg by mouth daily Restoril 30 g by mouth daily at bedtime as needed for sleep Albuterol 1 puff inhaled every 4 hours when necessary Carvedilol 3.125 mill grams by mouth twice a day Metformin ER 1000 mg by mouth twice a day Diltiazem CD 120 mg by mouth daily Tizanidine 4-8 mg po tid Norvasc 5 mg by mouth daily Crestor 20 mg by mouth daily at bedtime Ferrous sulfate 325 mg by mouth daily Lasix 40 mill grams by mouth daily Aspirin 325 mg by mouth daily Hanson 10/325 one by mouth every 12 hours as needed for pain Plavix 75 mg by mouth daily Pantoprazole 20 mg by mouth daily Calcium carbonate 1200 mg by mouth twice a day Synthroid 75 mg by mouth daily Vitamin D3 2000 units by mouth daily Family History Mother had an [place] at age 59 and at age 73 Her father had an myocardial infarction at age 64 and at age 69. Social History She smoked a half a pack to 1 pack of cigarettes per day for about 12-14 years. She quit smoking 12 years ago. No alcohol or illicit drug use She is and her is not well. Patient's sister, Thea Solares, states that she is patient's healthcare surrogate. Physical Exam Vital Signs Vital Signs Date Time Temp Pulse Resp B/P Pulse Ox O2 Delivery O2 Flow Rate FiO2 10/24/16 22:37 96 100 10/24/16 21:48 97 100 10/24/16 21:38 98.2 10/24/16 21:37 98.2 77 22 95/63 98 10/24/16 21:36 100 10/24/16 21:00 97 100 10/24/16 20:16 79 27 144/79 97 Ventilator 100 10/24/16 20:00 100 10/24/16 19:58 100 Ventilator 100 Physical Exam Pulse 87, sinus rhythm on the monitor blood pressure 105/67 sats 95% on ACV tidal volume 500/rate 18/P5/FiO2 100% Drips, Propofol GENERAL: Obese female who is orotracheally intubated. SKIN: Warm and dry. HEAD: Atraumatic. Normocephalic. EYES: Right pupil 4 mm and reactive, left pupil 3 mm and reactive. Mild bilateral conjunctival injection without drainage. ENT: No nasal bleeding or discharge. Mucous membranes pink and moist. NECK: Trachea midline. Unable to appreciate JVD CARDIOVASCULAR: Regular rate and rhythm, sinus rhythm on the monitor. No murmurs rubs or gallops. RESPIRATORY: Anterior Rales are heard bilaterally. There are pink/blood-tinged frothy secretions and endotracheal tube. GASTROINTESTINAL: Abdomen soft, non-tender, nondistended. Bowel sounds hypoactive MUSCULOSKELETAL: Extremities without clubbing, cyanosis. There is 1+ pedal edema bilaterally. Dorsalis pedis pulses are palpable bilaterally. NEUROLOGICAL: No eye opening. No eye deviation or nystagmus. Pupils reactive as per above, + corneal reflex, +spontaneous respirations. Withdraws to deep noxious stimulus with all extremities. Does not localize or follow commands. She does have some myoclonic movements with tactile stimulation that extinguish in ~ 5seconds. Laboratory Laboratory Tests Test 10/24/16 10/24/16 19:49 19:50 Blood Gas Puncture Site LT RADIAL Blood Gas Patient Temperature 98.6 Blood Gas HCO3 19 Blood Gas Base Excess -8.5 Blood Gas Oxygen Saturation 98 Arterial Blood pH 7.14 Arterial Blood Partial 58 Pressure CO2 Arterial Blood Partial 177 Pressure O2 Arterial Blood Oxygen Content 14.8 Arterial Blood 0.2 Carboxyhemoglobin Arterial Blood Methemoglobin 0.4 Blood Gas Hemoglobin 10.5 Oxygen Delivery Device VENTILATOR Blood Gas Ventilator Setting [id number]/500/[id number] Blood Gas Inspired Oxygen 100 White Blood Count 13.1 Red Blood Count 4.11 Hemoglobin 10.2 Hematocrit 33.2 Mean Corpuscular Volume 80.8 Mean Corpuscular Hemoglobin 24.8 Mean Corpuscular Hemoglobin 30.7 Concent Red Cell Distribution Width 17.2 Platelet Count 328 Mean Platelet Volume 9.2 Neutrophils (%) (Auto) 34.1 Lymphocytes (%) (Auto) 60.2 Monocytes (%) (Auto) 4.2 Eosinophils (%) (Auto) 1.3 Basophils (%) (Auto) 0.2 Neutrophils # (Auto) 4.5 Lymphocytes # (Auto) 7.9 Monocytes # (Auto) 0.5 Eosinophils # (Auto) 0.2 Basophils # (Auto) 0.0 CBC Comment AUTO DIFF Differential Total Cells 100 Counted Neutrophils % (Manual) 26 Band Neutrophils % 1 Lymphocytes % 62 Monocytes % 5 Eosinophils % 1 Basophils % 1 Neutrophils # (Manual) 4.1 Myelocytes 3 Promyelocytes 1 Nucleated Red Blood Cells 2 Differential Comment FINAL DIFF MANUAL Platelet Estimate NORMAL Platelet Morphology Comment NORMAL Ovalocytes 1+ Keratocytes OCC Prothrombin Time 10.9 Prothromb Time International 1.0 Ratio Activated Partial 19.6 Thromboplast Time Urine Color LIGHT-YELLOW Urine Turbidity HAZY Urine pH 7.5 Urine Specific Gro[place] 1.014 Urine Protein GREATER THAN 600 Urine Glucose (UA) 300 Urine Ketones TRACE Urine Occult Blood MOD Urine Nitrite NEG Urine Bilirubin NEG Urine Urobilinogen LESS THAN 2.0 Urine Leukocyte Esterase NEG Urine RBC 73 Urine WBC 12 Urine Squamous Epithelial 4 Cells Urine Bacteria RARE Microscopic Urinalysis Comment CATH-CULTURE IND Sodium Level 144 Potassium Level 3.4 Chloride Level 103 Carbon Dioxide Level 21.7 Anion Gap 19 Blood Urea Nitrogen 25 Creatinine 1.60 Estimat Glomerular Filtration 40 Rate Random Glucose 241 Lactic Acid Level 13.1 Calcium Level 10.1 Magnesium Level 2.4 Total Bilirubin 0.2 Aspartate Amino Transf 28 (AST/SGOT) Alanine Aminotransferase 23 (ALT/SGPT) Alkaline Phosphatase 122 Total Creatine Kinase 145 Creatine Kinase MB 1.2 Troponin I 0.08 B-Type Natriuretic Peptide 1356 Total Protein 7.0 Albumin 3.1 Lipase 91 Date/Time Procedure Status Source Growth 10/24/16 19:55 Aerobic Blood Culture Received Blood Peripheral Pending 10/24/16 19:55 Anaerobic Blood Culture Received Blood Peripheral Pending 10/24/16 19:50 Urine Culture Received Urine Catheterized Urine Pending Result Diagram: 10/24/16 1950 10/24/161949 Assessment and Plan Assessment and Plan NEURO: Coma post cardiac arrest, concern for anoxia Seziures Peripheral neuropathy Depression Stroke 2009 Propofol for sedation/seizures. Versed for sedation and seizure suppression. Fentanyl for analgosedation. RASS -3 to -4. Hold Neurontin for now. Induced therapeutic hypothermia target temp 34 x24 hours followed by rewarming 0.25 C/hr.. Nimbex for induction of cooling. CT brain 10/25 no acute normality Fosphenytoin 1000 mg/PE IV followed by 100 mg/PE q8 hours. Followup dilantin and albumin level. Follow-up EEG to ensure adequate seizure suppression. Follow-up neurologic assessment following rewarming RESP: Acute respiratory failure Pulmonary edema Pneumonia History of tobacco abuse ETT positioned to 20 cm. CXR to followup placement. Ventilator bundle. Given Lasix 40 mg IV x1 ACV TV 500 R18 PEEP 8 FIO2 50%. Wean FIO2 as tolerated but no CPAP trials until after rewarming. CTA neg for PE, +bilateral pulmonary edema, bibasilar consolidation CV: Asystolic cardiac arrest Coronary artery disease Chronic systolic heart failure History of hypertension Hyperlipidemia Serial cardiac markers, serial EKG, follow-up Echo. Given ASA 161 in ED. Heparin drip. Dr. Addison d/w Dr. Malik who recommended heparin drip at this time. GI: GERD Obesity OG tube to LIWS. Nothing by mouth during induced therapeutic hypothermia. Protonix for stress ulcer plus prophylaxis as per below FEN/RENAL: DANII overlying CKD stage III Lactic acidemia Pablo in place. Monitor intake and output. Replace electrolyte as indicated. Serial lactic acid. ID: ?[id number] Probable aspiration pneumonia U/a with 12 WBC, rare bacteria. Followup urine culture Follow-up blood culture Send sputum culture Received cefepime and azithromycin in the ED empirically. Will continue coverage with azithromycin, cefepime, Flagyl. Follow-up blood and urine culture. Send sputum culture. HEME: Chronic anemia Monitor CBC ENDO: Diabetes mellitus Medium dose insulin sliding scale at bedside glucose every 4 hours Hypothyroidism Checked TSH which resulted as normal. PROPH: Heparin drip which will also provide DVT prophylaxis. Protonix 40 mg IV daily for stress ulcer prophylaxis. ACCESS: Peripheral IV. Left femoral heat exchange catheter placed 10/25/16 Patient's sister, Thea Valdez, states that she is patients healthcare surrogate. She states patient would wish to be full code at this time. She is aware that patients condition is critical and is aware of potential for anoxic injury. She has provided consent for heat exchange catheter placement and induced therapeutic hypothermia. CCT 60 minutes Nathalie Montero MD Oct 25, 2016 00:12
[2016-10-25] MEDS ORDERED: POTASSIUM CHLOR 20 MEQ PREMIX 100 ML IV SCH (00:15)
[2016-10-25] MEDS ORDERED: INSULIN ASPART SUPPLEMENTAL SCALE SQ SCH (00:15)
[2016-10-25] MEDS ORDERED: ONDANSETRON HCL 4 MG/2 ML VIAL IV PRN (00:15)
[2016-10-25] MEDS ORDERED: MISCELLANEOUS NURSING INFORMATION XX SCH (00:15)
[2016-10-25] MEDS ORDERED: ACETAMINOPHEN 325 MG TAB PO PRN (00:15)
[2016-10-25] MEDS ORDERED: DEXTROSE 50% IN WATER 50 ML VIAL(D50) IV PUSH PRN ×2 (00:15→04:30)
[2016-10-25] MEDS ORDERED: CHLORHEXIDINE GLUCONATE 2 % 1 PACK (2 CLOTHS) TOP PRN (00:15)
[2016-10-25] MEDS ORDERED: GLUCAGON 1 MG/ML VIAL OTHER PRN ×2 (00:15→04:30)
[2016-10-25] MEDS ORDERED: MIDAZOLAM 100 MG/ML INJ 100 ML IV SCH ×2 (00:15)
[2016-10-25] MEDS ORDERED: MIDAZOLAM HCL 2 MG/2 ML VIAL IV PRN (00:15)
[2016-10-25] MEDS ORDERED: PROPOFOL 1000 MG/100 ML INJ 100 ML IV SCH (00:15)
[2016-10-25] MEDS ORDERED: RESP: ALBUTEROL 2.5 MG/3 ML NEB (PRN) INH (00:15)
[2016-10-25] MEDS ORDERED: ASPIRIN 81 MG CHEW TAB OG-TUBE ONE (00:15)
[2016-10-25 01:11] LABS: HEMATOCRIT 33.7 % (35.0-46.0); MEAN CELL VOLUME 76.6 FL (80.0-100.0); MEAN CORPUSCULAR HEMOGLOBIN 24.6 PG (27.0-34.0); MEAN CORPUSCULAR HGB CONC 32.2 % (32.0-36.0); PLATELET COUNT 364 TH/MM3 (150-450); RED CELL DISTRIBUTION WIDTH 16.6 % (11.6-17.2); REVIEW FLAG FINAL; WHITE BLOOD COUNT 9.6 TH/MM3 (4.0-11.0)
[2016-10-25 01:24] LABS: APTT (PATIENT) 22.8 SEC (24.3-30.1); INTERNATIONAL NORMALIZED RATIO 1.1 RATIO
[2016-10-25] MEDS ORDERED: SODIUM CHLORID 0.9% IV SCH (01:45)
[2016-10-25] MEDS ORDERED: PENTOBARBITAL IV SCH (01:45)
[2016-10-25] MEDS: RESP: ALBUTEROL 2.5 MG/IPRATROPIUM 0.5 MG NEB (SCH) INH ×4 (03:54→20:58)
[2016-10-25] MEDS: CHLORHEXIDINE GLUCONATE 2 % 1 PACK (2 CLOTHS) TOP SCH (04:00)
[2016-10-25] MEDS ORDERED: POTASSIUM PHOSPHATE MONOBASIC 500 MG TAB PO PRN (04:30)
[2016-10-25] MEDS ORDERED: MIDAZOLAM HCL 2 MG/2 ML VIAL IV ONE (04:30)
[2016-10-25] MEDS ORDERED: ARTIFICIAL TEARS OPTH OINT 3.5 APPLIC/3.5 GM TUBO EACH EYE PRN (04:30)
[2016-10-25] MEDS ORDERED: POTASSIUM CHLOR 40 MEQ PREMIX 100 ML IV PRN (04:30)
[2016-10-25] MEDS ORDERED: POTASSIUM CHLOR 20 MEQ PREMIX 100 ML IV PRN ×2 (04:30)
[2016-10-25] MEDS: INSULIN ASPART SUPPLEMENTAL SCALE SQ SCH ×5 (04:30→20:12)
[2016-10-25] MEDS ORDERED: SODIUM PHOSPHATE INJ 30 MMOL in SODIUM CHLOR 0.9% 250 ML INJ 240 ML IV PRN (04:30)
[2016-10-25] MEDS ORDERED: CISATRACURIUM BESYLATE 20 MG/10 ML VIAL IVP ONE (04:30)
[2016-10-25] MEDS ORDERED: LORazepam 2 MG/ML VIAL IV PRN (04:30)
[2016-10-25] MEDS ORDERED: POTASSIUM PHOSPHATE INJ 30 MMOL in SODIUM CHLOR 0.9% 250 ML INJ 250 ML IV PRN (04:30)
--- NOTE | 2016-10-25 04:35 | PD.PROCEDR ---
Procedure Note Procedure DATE: Heat Exchange Catheter Placement: Right femoral vein. INDICATION: Induced therapeutic hypothermia. CONSENT Informed consent for procedure was obtained from patient's sister, who states she is healthcare surrogate. Consent was witnessed by ED RN's DESCRIPTION OF THE PROCEDURE The patient was placed in supine position, Trendelenburg. The skin was cleansed with Chloraprep. Additional barrier precautions included large sterile drape, sterile gloves, sterile gown, face mask, and hat. 1 % lidocaine was used for local anesthesia. On a single attempt, the vein was accessed with an introducer needle. The guide wire was advanced and the tract was dilated. Using Seldinger technique a 9.3 German Zoll Quattro Heat Exchange catheter was advanced. The guide wire was removed. All ports had good return of dark venous blood and flushed easily with saline. The central line was secured with 2.0 silk. A sterile dressing with antibiotic disc was applied. ESTIMATED BLOOD LOSS: Minimal COMPLICATIONS: No apparent complications. Nathalie Montero MD Oct 25, 2016 04:35
[2016-10-25 05:18] LABS: AMPHETAMINE, URINE NEG (NEG); BARBITURATES, URINE NEG (NEG); COCAINE, URINE NEG (NEG)
[2016-10-25 05:19] LABS: BICARBONATE 24.2 MEQ/L (21.0-32.0); MAGNESIUM 1.7 MG/DL (1.5-2.5)
[2016-10-25 05:21] LABS: POTASSIUM 2.6 MEQ/L (3.5-5.1)
[2016-10-25] MEDS: PROPOFOL 1000 MG/100 ML INJ 100 ML IV SCH ×3 (05:38→20:13)
[2016-10-25] MEDS: CISATRACURIUM INJ 100 MG in SODIUM CHLOR 0.9% 250 ML INJ 240 ML IV SCH ×2 (05:38→20:13)
[2016-10-25] MEDS: MIDAZOLAM 100 MG/ML INJ 100 ML IV SCH ×2 (05:39→08:30)
[2016-10-25] MEDS ORDERED: HEPARIN SODIUM - IV 10,000 UNITS/10 ML VIAL IV PRN ×2 (06:00)
[2016-10-25] MEDS: HEPARIN INJ 25,000 UNITS in SODIUM CHLOR 0.9% 250 ML INJ 247.5 ML IV SCH (07:58)
[2016-10-25 07:59] LABS: APTT (PATIENT) 24.6 SEC (24.3-30.1)
[2016-10-25 08:31] LABS: BICARBONATE 27.1 MEQ/L (21.0-32.0); MAGNESIUM 1.5 MG/DL (1.5-2.5)
[2016-10-25] MEDS: PANTOPRAZOLE SODIUM 40 MG VIAL IV SCH (08:31)
[2016-10-25 08:59] LABS: POTASSIUM 2.6 MEQ/L (3.5-5.1)
[2016-10-25] MEDS: ARTIFICIAL TEARS OPTH OINT 3.5 APPLIC/3.5 GM TUBO EACH EYE SCH ×3 (09:00→20:15)
[2016-10-25] MEDS: POTASSIUM CHLOR 40 MEQ PREMIX 100 ML IV PRN ×2 (09:07→12:09)
[2016-10-25] MEDS: CHLORHEXIDINE 0.12% (ORAL KIT) 15 ML CUP MT SCH ×2 (09:08→20:15)
[2016-10-25 10:15] LABS: BLOOD GAS BASE EXCESS -0.4 mmol/L (-2-2); BLOOD GAS CARBOXYHEMOGLOBIN 1.4 % (0-4); BLOOD GAS HCO3 23 mmol/L (22-26); BLOOD GAS O2 HGB SATURATION 97 % (90-100); BLOOD GAS PCO2 30 mmHg (38-42); BLOOD GAS PO2 202 mmHg (61-120); BLOOD GAS TOTAL HGB 10.7 G/DL (12.0-16.0); CRITICAL VALUE NO; DRAW SITE ART LINE; FIO2 50 %; OXYGEN DEVICE VENTILATOR; STAT YES; TEMP CORR TO 98.6
[2016-10-25 10:19] LABS: VENT SETTINGS A/C 18/500/8PEEP
[2016-10-25 10:23] LABS: INDIRECT BILIRUBIN 0.7 MG/DL (0.0-0.8)
--- NOTE | 2016-10-25 10:42 | RADRPT ---
EXAM DATE/TIME: 10/25/2016 09:56 [facility] COMPARISON: CHEST SINGLE AP, October 24, 2016, 20:05. INDICATIONS : Respiratory failure. MEDICAL HISTORY : Hypertension. Myocardial infarction. Diabetes mellitus type II. GERD. SURGICAL HISTORY : Coronary artery stent. ENCOUNTER: Subsequent ACUITY: 1 week PAIN SCORE: Non-responsive. LOCATION: Bilateral chest FINDINGS: A single portable frontal view the chest shows moderate cardiomegaly. Pulmonary vascular engorgement and bibasilar interstitial prominence. Some improvement relative to the prior study. No effusions. Ti p of the endotracheal tube 4 cm from the jody. Nasogastric tube tip courses off the inferior margin of the film. CONCLUSION: Some improvement in the pulmonary edema. Carlton Servin Jr., MD on October 25, 2016 at 10:39 Board Certified Radiologist. This report was verified electronically.
[2016-10-25] MEDS: FOSPHENYTOIN SODIUM 100 MG PE/2 ML VIAL IV SCH ×4 (11:00→21:26)
[2016-10-25] MEDS: metroNIDAZOLE 500 MG INJ 100 ML IV SCH ×2 (12:07→20:12)
[2016-10-25] MEDS: CEFEPIME INJ 2,000 MG in SODIUM CHLORIDE 0.9% INJ 100 ML IV SCH ×2 (12:08→22:38)
--- NOTE | 2016-10-25 12:17 | EC ---
Study Study Date:10/25/2016 STUDY CONCLUSIONS SUMMARY - Left ventricle: The cavity size was normal. Wall thickness was normal. Systolic function was severely reduced. The estimated ejection fraction was in the range of 20% to 25%. Diffuse hypokinesis. - Mitral valve: Severe regurgitation. - Pulmonary arteries: PA peak pressure: 55mm Hg (S). If LV function is below 40, please consider prescribing an ACEI or ARB or document rationale for non-use. PROCEDURE DATA STUDY STATUS: Elective. Procedure: Transthoracic echocardiography. Image quality was good. Scanning was performed from the parasternal, apical, and subcostal acoustic windows. Study completion: The patient tolerated the procedure well. Transthoracic echocardiography. M-mode, complete 2D, complete spectral Doppler, and color Doppler. Patient status: Inpatient. CARDIAC ANATOMY LEFT VENTRICLE: The cavity size was normal. Wall thickness was normal. Systolic function was severely reduced. The estimated ejection fraction was in the range of 20% to 25%. Diffuse hypokinesis. AORTIC VALVE: Trileaflet; normal thickness leaflets. Doppler: Transvalvular velocity was within the normal range. There was no stenosis. No regurgitation. AORTA: Aortic root: The aortic root was normal in size. MITRAL VALVE: Structurally normal valve. Doppler: Transvalvular velocity was within the normal range. There was no evidence for stenosis. Severe regurgitation. LEFT ATRIUM: The atrium was normal in size. RIGHT VENTRICLE: The cavity size was normal. Wall thickness was normal. PULMONIC VALVE: Doppler: Transvalvular velocity was within the normal range. There was no evidence for stenosis. No regurgitation. TRICUSPID VALVE: Structurally normal valve. Doppler: Transvalvular velocity was within the normal range. No regurgitation. PULMONARY ARTERY: The main pulmonary artery was normal-sized. Systolic pressure was within the normal range. RIGHT ATRIUM: The atrium was normal in size. PERICARDIUM: There was no pericardial effusion. SYSTEMIC VEINS: Inferior vena cava: The vessel was normal in size. BASIC MEASUREMENTS ADULT Normal Left ventricle LV internal dimension, ED, chordal level, *53.6 mm 43-52 PLAX LV internal dimension, ES, chordal level, *49 mm 23-38 PLAX Fractional shortening, chordal level, PLAX *9 % >29 LV posterior wall thickness, ED 13.9 mm IVS/LVPW ratio, ED 0.99 <1.3 Ventricular septum Septal thickness, ED 13.8 mm Aortic valve Leaflet separation 21 mm 15-26 Right ventricle RV internal dimension, ED, PLAX 20.9 mm 19-38 BASIC MEASUREMENTS ADULT Normal Aortic valve Leaflet separation 21 mm 15-26 Aorta Root diameter, ED 33 mm 20-37 Left atrium Anterior-posterior dimension, ES 27 mm 19-40 LA/aortic root ratio 0.82 DOPPLER MEASUREMENTS ADULT Normal Main pulmonary artery Pressure, S *55 mm Hg =30 Tricuspid valve Regurgitant peak velocity 337 cm/s Peak RV-RA gradient, S 45 mm Hg Maximal regurgitant velocity 337 cm/s Systemic veins Estimated CVP 10 mm Hg Right ventricle RV pressure, S *55 mm Hg <30 LEGEND: Mean values are shown as u=mean value. Asterisk (*) neri values outside specified normal range. Prepared and signed by Álvaro Ambriz [id number]
[2016-10-25 14:55] LABS: BICARBONATE 24.8 MEQ/L (21.0-32.0); MAGNESIUM 1.4 MG/DL (1.5-2.5); POTASSIUM 4.7 MEQ/L (3.5-5.1)
[2016-10-25 15:07] LABS: APTT (PATIENT) 115.5 SEC (24.3-30.1)
[2016-10-25] MEDS: MAGNESIUM OXIDE 400 MG TAB PO PRN ×2 (15:40→22:38)
--- NOTE | 2016-10-25 16:01 | EKG ---
Date Performed: 10/24/2016 Time Performed: 19:40:02 PTAGE: 56 years EKG: ATRIAL FIBRILLATION WITH RAPID VENTRICULAR RESPONSE LEFT VENTRICULAR HYPERTROPHY AND ST-T C HANGE Intraventricular conduction delay. When compared to prervious tracing, the rate is faster. ABNO RMAL ECG PREVIOUS TRACING : 10/15/2016 18.06 DOCTOR: Marc Lujan Interpretating Date/Time 10/25/2016 16:01:13
--- NOTE | 2016-10-25 16:05 | EKG ---
Date Performed: 10/24/2016 Time Performed: 23:41:39 PTAGE: 56 years EKG: Sinus rhythm WITH SHORT MN INTERVAL MARKED LEFT AXIS DEVIATION MODERATE INTRAVENTRICULAR CONDUCTION DELAY ST TERRY ATION AND MODERATE T-WAVE ABNORMALITY, CONSIDER ANTERIOR ISCHEMIA When compared to previous tracing, the rate has slowed and Sinus rhythm is now present. There has been significant improvement in ST seg ment depression And QRS has narrowed. ABNORMAL ECG PREVIOUS TRACING : 10/24/2016 19.40 DOCTOR: Marc Lujan Interpretating Date/Time 10/25/2016 16:04:34
--- NOTE | 2016-10-25 16:07 | EKG ---
Date Performed: 10/25/2016 Time Performed: 07:08:50 PTAGE: 56 years EKG: Sinus rhythm POSSIBLE LEFT ATRIAL ENLARGEMENT POSSIBLE INFERIOR MYOCARDIAL INFARCTION , PROBABLY OLD WITH POSTERI OR EXTENSION When compared to previous tracing, there has been some Improvement in the nonspecific T wave changes. BORDERLINE ECG PREVIOUS TRACING : 10/24/2016 23.41 DOCTOR: Marc Lujan Interpretating Date/Time 10/25/2016 16:05:32
--- NOTE | 2016-10-25 16:39 | MB ---
cc: CHAUNCEY MCARTHUR M.D. DATE OF CONSULTATION: 10/25/2016 REASON FOR CONSULTATION: Cole is a very pleasant 56-year old lady. History of coronary disease status post PCI by myself last February. She also has had history of MIAN II to III flow in the LAD, RCA. She has history of diabetes and CVA. She had been visiting her brother who underwent bypass surgery [facility] the complained to her sisters that she was not feeling well. Also noted chest pain and pressure, went home reportedly was complaining of chest pain, shortness of breath, called 9-1-1 and then lost consciousness. Her and child were there but were not able to perform cardiopulmonary resuscitation per her family she was down 30 minutes. ACLS resuscitation, chest compressions were done per EMS and the patient was starting on a cooling protocol. REVIEW OF SYSTEMS: The review of systems otherwise is unobtainable for obvious reasons. PAST MEDICAL HISTORY Per is present illness; History of; Gastroesophageal reflux disease Hypertension Bulging disks in the back Migraine Myocardial infarction. Abdominal surgery. Appendectomy. SOCIAL HISTORY Denies tobacco or alcohol use. ALLERGIES None. MEDICATIONS PRIOR TO ADMISSION 1. Pro Air. 2. Amlodipine 5 daily. 3. Aspirin 325 daily. 4. Calcium. 5. Cardizem CD 120 daily. 6. Carvedilol 3.25 b.i.d. 7. Vitamin D3. 8. Plavix 75 daily 9. citalopram oscillate 10 mg daily. 10. Ferrous sulfate 225 daily. 11. Lasix 40 daily 12. Gabapentin 13. Narco 14. Losartan 25 daily. 15. Metformin 1000 b.i.d. 16. Zofran. 17. Pantoprazole. 18. Synthroid 75 mics daily 19. Restoril 20. Crestor 20. 21. Tizanidine 4. PAST MEDICAL HISTORY Her labs heart cath on 03/02/2016 showed EF of 45%. LV pressure 95 set 06-08 40% in-stent stenosis of proximal RCA 50% distal RCA right PDA 30% ostial stent proximal segment widely patent right posterolateral artery ostial 60% stenosis. Left main no significant disease. Left circ occluded proximal LAD. No significant disease. FFR of the posterolateral artery was 0.86. The patient also had a 2-D echo today which showed an EF of 20-25% diffuse hypokinesis, severe MR. PA pressure 55 mmHg. MEDICATIONS: The medications in the hospital currently; 1. Azithromycin 2. metronidazole 3. Cerebyx 4. atropine 5. pantoprazole 40 daily 6. Cisatracurium IV drip 7. Heparin IV drip. 8. , IV drip 9. Fentanyl IV drip 10. Propofol IV drip. 11. Aspirin was given 162 x1 down the G tube 12. Cardizem drip. PHYSICAL EXAMINATION VITAL SIGNS: The blood pressure 99/71, pulse is 67, sats 50%, temperature 93.0. IN GENERAL: She is intubated and sedated. NECK: Supple. LUNGS: no JVD or bruit CARDIOVASCULAR SYSTEM: S1, S2, No murmurs, rubs or gallops. LUNGS: The lungs are clear to auscultation bilaterally. ABDOMEN: The abdomen is soft, nontender, positive bowel sounds. EXTREMITIES: No lower extremity edema. RADIOLOGIC: Chest x-ray Shows some improvement pulmonary edema. CT CHEST No evident no evidence of PE diffuse infiltrates, bilateral Consistent with severe pulmonary edema versus pneumonia with more solid areas within the lower lobes bilaterally, cardiomegaly. CT the abdomen and pelvis questionable perfusion defects involving the left kidney suggesting possible mild acute pyelonephritis, tiny ventral hernia within the region of the umbilicus. Bilateral pulmonary infiltrates consistent with pulmonary edema, versus pneumonia. Pericholecystic fluid without gallbladder distention noted. CT HEAD No acute intracranial abnormality, the air fluid level within the right maxillary sinus. EKG shows SVT at a rate of 155 beats minute, [address]-segment depression, lead V5, [address]-segment depression lead V6. A left anterior fascicular block. LABORATORY DATA White count 34, 111 temperature, O2 hematocrit 33.2, platelet count 328, sodium 47, potassium 2.641 time are bicarb 24.2, BUN 31 creatinine 1.61, magnesium 1.7. Initial BMP 1356. Initial troponin 0.08. Initial lactic acid 13.1, second troponin is 0.74, AST 62, INR 1.1, blood gas pH 7.49, pCO2 38, pO2 202 on 50% oxygen. FINAL DIAGNOSIS 1. Non STEMI 2. Cardiac arrest 3. Cardiomyopathy. 4. Severe MR. 5. Decompensated congestive heart failure 6. Diabetes 7. Altered mental status 8. Pulmonary edema. 9. Lactic acidosis. 10. Respiratory failure 11. Respiratory acidosis. 12. Elevated white count 13. Anemia 14. Hypokalemia 15. Hypernatremia. 16. Acute renal failure. 17. Elevated liver enzymes. 18. Hypomagnesemia. 19. Hyperglycemia 20. Coronary artery disease. DISCUSSION At this point in time the patient is ongoing hypothermia protocol. she is anticoagulated with heparin and received one dose aspirin. Agree with heparinization. Tests recommend daily BNP, BMP to guide diuretics and blood pressure management. It is of suspected she may have had a type of 9:51 type event given the history of MIAN II flow in the LAD and left circ in the past as well as her brother recently undergoing bypass surgery. History sounds suspicious for this. Nevertheless it does not appear that she has a primary obstructive event as the troponin is minimally elevated despite cardiac arrest for up to 30 minutes prior to resuscitation. I have discussed options with her family and explained that will need to determine her neurologic prognosis prior to considering invasive evaluation and management. Her condition is very guarded given the severe MR and severe LV systolic dysfunction. MELVIN inhibitors being held due to acute renal failure and hypotension and beta blockers being held due to hypotension acute renal failure, if and when the patient becomes more hemodynamically stable, we will consider starting Coreg 3.5 b.i.d. MD THIAGO Garcia/kerwin /2:51 PM /3:44 PM
[2016-10-25] MEDS: fentaNYL DRIP 250 ML IV SCH (17:01)
[2016-10-25 18:40] LABS: APTT (PATIENT) 79.4 SEC (24.3-30.1)
[2016-10-25] MEDS: AZITHROMYCIN INJ 500 MG in SODIUM CHLOR 0.9% 250 ML INJ 250 ML IV SCH (20:12)
[2016-10-25 21:47] LABS: BICARBONATE 26.4 MEQ/L (21.0-32.0); MAGNESIUM 1.6 MG/DL (1.5-2.5); POTASSIUM 3.6 MEQ/L (3.5-5.1)
[2016-10-25 21:48] LABS: CRITICAL VALUE YES
[2016-10-25 22:42] LABS: BLOOD GAS BASE EXCESS -1.5 mmol/L (-2-2); BLOOD GAS CARBOXYHEMOGLOBIN 1.4 % (0-4); BLOOD GAS HCO3 21 mmol/L (22-26); BLOOD GAS O2 HGB SATURATION 97 % (90-100); BLOOD GAS OXYGEN CONTENT 14.3 Vol % (12.0-20.0); BLOOD GAS PCO2 27 mmHg (38-42); BLOOD GAS PO2 237 mmHg (61-120); CRITICAL VALUE NO; FIO2 50 %; OXYGEN DEVICE VENTILATOR; TEMP CORR TO 98.6; VENT SETTINGS AC18/500/PEEP8
[2016-10-25 22:43] LABS: DRAW SITE ART LINE; STAT NO
[2016-10-26] VITALS (21 sets, daily range): BP systolic 92–133; BP diastolic 52–84; PULSE 68–113; RESP 18; TEMP 93.2–97.7; O2SAT 0–100
[2016-10-26] MEDS: INSULIN ASPART SUPPLEMENTAL SCALE SQ SCH ×6 (00:30→20:03)
[2016-10-26 01:25] LABS: APTT (PATIENT) 49.5 SEC (24.3-30.1)
[2016-10-26] MEDS: RESP: ALBUTEROL 2.5 MG/IPRATROPIUM 0.5 MG NEB (SCH) INH ×4 (03:23→20:35)
[2016-10-26] MEDS: CHLORHEXIDINE GLUCONATE 2 % 1 PACK (2 CLOTHS) TOP SCH (04:00)
[2016-10-26] MEDS: metroNIDAZOLE 500 MG INJ 100 ML IV SCH ×3 (04:41→19:55)
[2016-10-26] MEDS: FOSPHENYTOIN SODIUM 100 MG PE/2 ML VIAL IV SCH ×3 (05:17→22:00)
[2016-10-26] MEDS: MIDAZOLAM 100 MG/ML INJ 100 ML IV SCH (05:25)
[2016-10-26 05:42] LABS: AUTOMATED NEUTROPHIL # 13.5 TH/MM3 (1.8-7.7); BASOPHIL % 0.1 % (0.0-2.0); HEMATOCRIT 29.5 % (35.0-46.0); LYMPH % 4.3 % (9.0-44.0); LYMPHOCYTE # 0.6 TH/MM3 (1.0-4.8); MEAN CORPUSCULAR HEMOGLOBIN 24.7 PG (27.0-34.0); MEAN CORPUSCULAR HGB CONC 32.9 % (32.0-36.0); MONO % 3.1 % (0.0-8.0); NEUT % 92.5 % (16.0-70.0); PLATELET COUNT 248 TH/MM3 (150-450); RED BLOOD COUNT 3.93 MIL/MM3 (4.00-5.30); RED CELL DISTRIBUTION WIDTH 16.6 % (11.6-17.2); WHITE BLOOD COUNT 14.6 TH/MM3 (4.0-11.0)
[2016-10-26 05:49] LABS: APTT (PATIENT) 44.5 SEC (24.3-30.1)
[2016-10-26 06:01] LABS: HEMO FLAGS AUTO DIFF
[2016-10-26 06:19] LABS: ALKALINE PHOSPHATASE 84 U/L (45-117); ALT (GPT) 26 U/L (10-53); ANION GAP 10 MEQ/L (5-15); AST (GOT) 63 U/L (15-37); BICARBONATE 24.8 MEQ/L (21.0-32.0); BLOOD UREA NITROGEN 24 MG/DL (7-18); CHLORIDE 110 MEQ/L (98-107); GLOMERULAR FILTRATION RATE 79 ML/MIN (>89); MAGNESIUM 1.6 MG/DL (1.5-2.5); POTASSIUM 3.2 MEQ/L (3.5-5.1); SODIUM (NA) 145 MEQ/L (136-145); TOTAL BILIRUBIN ADULT 1.1 MG/DL (0.2-1.0)
[2016-10-26 07:50] LABS: BANDS 15 % (0-6); NEUTROPHIL # MANUAL DIFF 13.4 TH/MM3 (1.8-7.7); PLATELET ESTIMATE SMEAR NORMAL (NORMAL); PLATELET MORPHOLOGY NORMAL (NORMAL); POLYS (SEG NEUTROPHILS) 77 % (16-70); SCAN/DIFF FINAL DIFF MANUAL; WBC DIFF SAMPLE 100
[2016-10-26] MEDS ORDERED: NOREPINEPHRINE-DEXTROSE DRIP 250 ML IV ONE (08:05)
[2016-10-26] MEDS: PANTOPRAZOLE SODIUM 40 MG VIAL IV SCH (08:37)
[2016-10-26] MEDS: ARTIFICIAL TEARS OPTH OINT 3.5 APPLIC/3.5 GM TUBO EACH EYE SCH ×2 (08:37→20:04)
[2016-10-26] MEDS: CHLORHEXIDINE 0.12% (ORAL KIT) 15 ML CUP MT SCH ×2 (08:37→19:59)
--- NOTE | 2016-10-26 09:35 | HHI.CCPN ---
Subjective Remarks/Hospital Course Hospital Course: 56-year-old female with past medical history of hypertension, Coronary artery disease with multiple stents, Chronic systolic heart failure with ejection fraction of 45%, diabetes mellitus, stroke in 2008. She presented to [facility] emergency department via [facility] following asystolic cardiac arrest. Patient is not able to provide history. Some history was obtained from patient's sister, Thea Solares. Reportedly she had been having some epigastric discomfort since 10/24 afternoon as well as SOB. She was able to drive herself to the hospital to visit another family member. She later went home with her who is not in good health. She was walking down the [address] and began to call for help and then collapsed. She had previously called [facility] [employer] herself a few minutes before. Bystander CPR was not initiated. [facility] reportedly arrived 3 minutes after her collapse and she was in asystole. She was given Epi x4, bicarb x1, Narcan 2 mg , calcium, and Combitube was placed. She had ROSC upon arrival to ED. She was intubated by ED physician. She was noted to have a seizure in the ED that initially improved with ativan 2 mg IV but then recurred. She was loaded with fosphenytoin. She was given cardizem 15 mg IV for Afib RVR. She received cefepime, azithromycin 500 mg IV, and Lasix 40 g IV in the ED. CT brain is negative. CT pulmonary artery is negative for PE. There is pulmonary edema and bilateral lower lobe consolidation. Subjective: 10/26: starting rewarming this morning. hypotensive. echo with severe LV dysfunction. connected pulse contour analysis with CI 1.9, oliguria, evidence of cardiogenic shock. otherwise remains deeply sedated and paralyzed. Objective Vital Signs Date Time Temp Pulse Resp B/P Pulse Ox O2 Delivery O2 Flow Rate FiO2 10/26/16 08:01 0 40 10/26/16 06:00 73 10/26/16 04:00 93.2 18 103/74 96/70 10/24/16 22:45 Ventilator Intake and Output 10/25/16 10/25/16 10/26/16 08:00 16:00 00:00 Intake Total 86 ml 488 ml 913 ml Output Total 2850 ml 700 ml 710 ml Balance -2764 ml -212 ml 203 ml Result Diagram: 10/26/16 0505 10/26/16 0505 Other Results Laboratory Tests Test 10/25/16 10/25/16 10:02 22:32 Blood Gas Puncture Site ART LINE ART LINE Blood Gas Patient Temperature 98.6 98.6 Blood Gas HCO3 23 mmol/L 21 mmol/L (22-26) (22-26) Blood Gas Base Excess -0.4 mmol/L -1.5 mmol/L (-2-2) (-2-2) Blood Gas Oxygen Saturation 97 % (90-100) 97 % (90-100) Arterial Blood pH 7.49 7.50 (7.380-7.420) (7.380-7.420) Arterial Blood Partial 30 mmHg (38-42) 27 mmHg (38-42) Pressure CO2 Arterial Blood Partial 202 mmHg 237 mmHg Pressure O2 (61-120) (61-120) Arterial Blood Oxygen Content 15.0 Vol % 14.3 Vol % (12.0-20.0) (12.0-20.0) Arterial Blood 1.4 % (0-4) 1.4 % (0-4) Carboxyhemoglobin Arterial Blood Methemoglobin 1.0 % (0-2) 1.0 % (0-2) Blood Gas Hemoglobin 10.7 G/DL 10.0 G/DL (12.0-16.0) (12.0-16.0) Oxygen Delivery Device VENTILATOR VENTILATOR Blood Gas Ventilator Setting A/C AC18/500/PEEP8 18/500/8PEEP Blood Gas Inspired Oxygen 50 % 50 % Objective Remarks GENERAL: Obese female who is orotracheally intubated. SKIN: cool, dry, poorly perfused. HEAD: Atraumatic. Normocephalic. EYES: pupils equal, sluggishly reactive. ENT: No nasal bleeding or discharge. Mucous membranes pink and moist. NECK: Trachea midline. Unable to appreciate JVD CARDIOVASCULAR: Regular rate and rhythm, sinus rhythm on the monitor. No murmurs rubs or gallops. RESPIRATORY: equal chest rise. coarse bilateral breath sounds. GASTROINTESTINAL: Abdomen soft, non-tender, nondistended. no guarding. MUSCULOSKELETAL: Extremities without clubbing, cyanosis. There is 1+ pedal edema bilaterally. NEUROLOGICAL: Patient is deeply sedated and paralyzed. pupils as above. otherwise GCS 3. A/P Assessment and Plan Assessment: 56yF s/p [id number] cardiac arrest that appears to be ischemic from CAD in nature. We will continue rewarming. once warm, we will proceed with EEG, MRI, and await any return of neurologic function. Also has significant component of cardiogenic shock this morning. will add inotropy to help end- organ perfusion. once warm, will hold neuromuscular blockade and wean sedation for neuro exam. NEURO: Coma post cardiac arrest, concern for hypoxic ischemic encephalopathy Seziures Peripheral neuropathy Depression Stroke 2009 Propofol for sedation/seizures. Versed for sedation and seizure suppression. Fentanyl for analgosedation. RASS -5 while paralyzed. once warm and off Nimbex, will aim for RASS -2. Hold Neurontin for now. rewarming. CT brain 10/25 no acute normality Fosphenytoin 1000 mg/PE IV followed by 100 mg/PE q8 hours. F/u EEG once warm. Follow-up neurologic assessment following rewarming RESP: Acute respiratory failure Pulmonary edema Pneumonia History of tobacco abuse Ventilator bundle. ACV TV 500 R18 PEEP 8 FIO2 40%. Wean FIO2 as tolerated but no CPAP trials until after rewarming. CTA neg for PE, +bilateral pulmonary edema, bibasilar consolidation CV: Asystolic cardiac arrest Coronary artery disease Chronic systolic heart failure History of hypertension Hyperlipidemia Cardiogenic shock Serial cardiac markers, serial EKG start milrinone at 0.5 mcg/kg/min Given ASA 161 in ED. Heparin drip. echo with severe left ventricular systolic dysfunction GI: GERD Obesity OG tube to LIWS. Nothing by mouth during induced therapeutic hypothermia. Protonix for stress ulcer plus prophylaxis as per below FEN/RENAL: DANII overlying CKD stage III Lactic acidemia- resolving. Pablo in place. Monitor intake and output. Replace electrolyte as indicated. Serial lactic acid. ID: ?[id number] Probable aspiration pneumonia U/a with 12 WBC, rare bacteria. Followup urine culture Follow-up blood culture Send sputum culture Received cefepime and azithromycin in the ED empirically. Will continue coverage with azithromycin, cefepime, Flagyl. cultures 10/25 NGTD. HEME: Chronic anemia Monitor CBC ENDO: Diabetes mellitus Medium dose insulin sliding scale at bedside glucose every 4 hours Hypothyroidism Checked TSH which resulted as normal. PROPH: Heparin drip which will also provide DVT prophylaxis. Protonix 40 mg IV daily for stress ulcer prophylaxis. ACCESS: Peripheral IV. Left femoral heat exchange catheter placed 10/25/16 Patient's sister, Thea Valdez, states that she is patients healthcare surrogate. She states patient would wish to be full code at this time. She is aware that patients condition is critical and is aware of potential for anoxic injury. She has provided consent for heat exchange catheter placement and induced therapeutic hypothermia. CCT 37 minutes Kwasi Pollard MD Oct 26, 2016 09:35
[2016-10-26] MEDS: MILRINONE INJ 20 MG in SODIUM CHLORIDE 0.9% INJ 80 ML IV SCH ×2 (10:32→17:00)
[2016-10-26] MEDS: CEFEPIME INJ 2,000 MG in SODIUM CHLORIDE 0.9% INJ 100 ML IV SCH ×2 (10:32→22:01)
[2016-10-26] MEDS: PROPOFOL 1000 MG/100 ML INJ 100 ML IV SCH (12:21)
[2016-10-26] MEDS: HEPARIN INJ 25,000 UNITS in SODIUM CHLOR 0.9% 250 ML INJ 247.5 ML IV SCH (12:23)
--- NOTE | 2016-10-26 17:01 | PD.CARD.PN ---
Subjective Subjective Remarks intubated, sedated Objective Vital Signs / I&O Vital Signs Date Time Temp Pulse Resp B/P Pulse Ox O2 Delivery O2 Flow Rate FiO2 10/26/16 16:41 100 40 10/26/16 16:00 104 10/26/16 16:00 97.3 104 18 114/63 99 92/52 10/26/16 16:00 40 10/26/16 14:57 96.8 10/26/16 14:00 99 10/26/16 13:33 100 40 10/26/16 12:00 91 10/26/16 12:00 40 10/26/16 12:00 95.2 90 18 118/68 98/59 10/26/16 10:07 0 40 10/26/16 10:00 71 10/26/16 09:30 68 112/70 99/60 10/26/16 08:01 0 40 10/26/16 08:00 40 10/26/16 08:00 72 10/26/16 08:00 93.4 72 18 102/62 97 96/65 10/26/16 06:00 73 10/26/16 04:16 100 50 10/26/16 04:00 50 10/26/16 04:00 74 10/26/16 04:00 93.2 74 18 103/74 100 96/70 10/26/16 02:00 69 10/26/16 01:18 100 50 10/26/16 00:00 50 10/26/16 00:00 71 10/26/16 00:00 93.2 71 18 117/84 100 105/77 10/25/16 22:12 97 50 10/25/16 22:00 71 10/25/16 20:58 98 50 10/25/16 20:00 66 10/25/16 20:00 93.2 66 18 112/80 99 102/75 10/25/16 20:00 50 10/25/16 18:00 67 I/O 10/25/16 10/25/16 10/25/16 10/26/16 10/26/16 10/26/16 07:00 15:00 23:00 07:00 15:00 23:00 Intake Total 86 ml 488 ml 913 ml 633 ml 970 ml Output Total 2850 ml 700 ml 710 ml 250 ml 100 ml Balance -2764 ml -212 ml 203 ml 383 ml 870 ml Intake IV Total 86 ml 488 ml 883 ml 633 ml 970 ml Other 30 ml Output Urine Total 2850 ml 700 ml 700 ml 150 ml 100 ml Gastric Drainage Total 0 ml 10 ml 100 ml 0 ml # Bowel Movements 4 1 0 Laboratory GENERAL: SKIN: Warm and dry. HEAD: Normocephalic. EYES: No scleral icterus. No injection or drainage. NECK: Supple, trachea midline. No JVD or lymphadenopathy. CARDIOVASCULAR: Regular rate and rhythm without murmurs, gallops, or rubs. RESPIRATORY: Breath sounds equal bilaterally. No accessory muscle use. GASTROINTESTINAL: Abdomen soft, non-tender, nondistended. MUSCULOSKELETAL: No cyanosis, or edema. BACK: Nontender without obvious deformity. No CVA tenderness. Laboratory Tests Test 10/25/16 10/25/16 10/25/16 10/26/16 18:00 20:00 22:32 00:15 Activated Partial 79.4 SEC 49.5 SEC Thromboplast Time Sodium Level 144 MEQ/L Potassium Level 3.6 MEQ/L Chloride Level 107 MEQ/L Carbon Dioxide Level 26.4 MEQ/L Anion Gap 11 MEQ/L Blood Urea Nitrogen 22 MG/DL Creatinine 1.03 MG/DL Estimat Glomerular Filtration 67 ML/MIN Rate Random Glucose 184 MG/DL Calcium Level 8.5 MG/DL Magnesium Level 1.6 MG/DL Troponin I 0.20 NG/ML Blood Gas Puncture Site ART LINE Blood Gas Patient Temperature 98.6 Blood Gas HCO3 21 mmol/L Blood Gas Base Excess -1.5 mmol/L Blood Gas Oxygen Saturation 97 % Arterial Blood pH 7.50 Arterial Blood Partial 27 mmHg Pressure CO2 Arterial Blood Partial 237 mmHg Pressure O2 Arterial Blood Oxygen Content 14.3 Vol % Arterial Blood 1.4 % Carboxyhemoglobin Arterial Blood Methemoglobin 1.0 % Blood Gas Hemoglobin 10.0 G/DL Oxygen Delivery Device VENTILATOR Blood Gas Ventilator Setting AC18/500/PEEP8 Blood Gas Inspired Oxygen 50 % Test 10/26/16 10/26/16 10/26/16 10/26/16 05:05 11:00 13:20 14:30 White Blood Count 14.6 TH/MM3 Red Blood Count 3.93 MIL/MM3 Hemoglobin 9.7 GM/DL Hematocrit 29.5 % Mean Corpuscular Volume 75.0 FL Mean Corpuscular Hemoglobin 24.7 PG Mean Corpuscular Hemoglobin 32.9 % Concent Red Cell Distribution Width 16.6 % Platelet Count 248 TH/MM3 Mean Platelet Volume 8.2 FL Neutrophils (%) (Auto) 92.5 % Lymphocytes (%) (Auto) 4.3 % Monocytes (%) (Auto) 3.1 % Eosinophils (%) (Auto) 0.0 % Basophils (%) (Auto) 0.1 % Neutrophils # (Auto) 13.5 TH/MM3 Lymphocytes # (Auto) 0.6 TH/MM3 Monocytes # (Auto) 0.4 TH/MM3 Eosinophils # (Auto) 0.0 TH/MM3 Basophils # (Auto) 0.0 TH/MM3 CBC Comment AUTO DIFF Differential Total Cells 100 Counted Neutrophils % (Manual) 77 % Band Neutrophils % 15 % Lymphocytes % 6 % Monocytes % 2 % Neutrophils # (Manual) 13.4 TH/MM3 Differential Comment FINAL DIFF MANUAL Platelet Estimate NORMAL Platelet Morphology Comment NORMAL Red Cell Morphology Comment NORMAL Activated Partial 44.5 SEC Thromboplast Time Sodium Level 145 MEQ/L Potassium Level 3.2 MEQ/L 3.4 MEQ/L Chloride Level 110 MEQ/L Carbon Dioxide Level 24.8 MEQ/L Anion Gap 10 MEQ/L Blood Urea Nitrogen 24 MG/DL Creatinine 0.89 MG/DL Estimat Glomerular Filtration 79 ML/MIN Rate Random Glucose 166 MG/DL Calcium Level 8.1 MG/DL Phosphorus Level 2.5 MG/DL Magnesium Level 1.6 MG/DL Total Bilirubin 1.1 MG/DL Aspartate Amino Transf 63 U/L (AST/SGOT) Alanine Aminotransferase 26 U/L (ALT/SGPT) Alkaline Phosphatase 84 U/L Troponin I 0.14 NG/ML 0.15 NG/ML 0.60 NG/ML Total Protein 6.4 GM/DL Albumin 2.7 GM/DL Assessment and Plan Problem List: (1) Cardiac microvascular disease (2) COPD (chronic obstructive pulmonary disease) (3) HLD (hyperlipidemia) (4) NSTEMI (non-ST elevated myocardial infarction) (5) Endothelial dysfunction of coronary artery (6) CAD (coronary artery disease) (7) HTN (hypertension) (8) DM (diabetes mellitus) (9) ACS (acute coronary syndrome) (10) Cardiopulmonary arrest with successful resuscitation (11) Pulmonary edema Assessment and Plan 1.) Cardiomyopathy/severe mr/endothelial dysfunction s/p cardiac arrest - suspicous for slow lad flow as seen on prior cath, continue hypothermia protocol , supportive care on vent, milronone Problem Qualifiers (1) Pulmonary edema: Qualified Code: J81.0 - Acute pulmonary edema Darron Willams MD Oct 26, 2016 17:00
[2016-10-26] MEDS: AZITHROMYCIN INJ 500 MG in SODIUM CHLOR 0.9% 250 ML INJ 250 ML IV SCH (19:55)
[2016-10-27] VITALS (19 sets, daily range): BP systolic 91–136; BP diastolic 54–76; PULSE 68–157; RESP 18–26; TEMP 97.7–100.6; O2SAT 94–100
[2016-10-27] MEDS: MILRINONE INJ 20 MG in SODIUM CHLORIDE 0.9% INJ 80 ML IV SCH ×4 (00:07→22:01)
[2016-10-27] MEDS: MIDAZOLAM 100 MG/ML INJ 100 ML IV SCH (00:07)
[2016-10-27] MEDS: INSULIN ASPART SUPPLEMENTAL SCALE SQ SCH ×6 (00:30→20:30)
[2016-10-27] MEDS: CHLORHEXIDINE GLUCONATE 2 % 1 PACK (2 CLOTHS) TOP SCH (04:00)
[2016-10-27] MEDS: metroNIDAZOLE 500 MG INJ 100 ML IV SCH ×3 (04:02→21:30)
[2016-10-27] MEDS: RESP: ALBUTEROL 2.5 MG/IPRATROPIUM 0.5 MG NEB (SCH) INH ×4 (04:24→20:23)
[2016-10-27 04:35] LABS: HEMATOCRIT 29.1 % (35.0-46.0); MEAN CELL VOLUME 75.9 FL (80.0-100.0); MEAN CORPUSCULAR HEMOGLOBIN 23.8 PG (27.0-34.0); MEAN CORPUSCULAR HGB CONC 31.4 % (32.0-36.0); PLATELET COUNT 269 TH/MM3 (150-450); RED BLOOD COUNT 3.84 MIL/MM3 (4.00-5.30); RED CELL DISTRIBUTION WIDTH 17.2 % (11.6-17.2); WHITE BLOOD COUNT 18.6 TH/MM3 (4.0-11.0)
[2016-10-27 04:42] LABS: APTT (PATIENT) 32.4 SEC (24.3-30.1)
[2016-10-27 04:50] LABS: BICARBONATE 22.9 MEQ/L (21.0-32.0); POTASSIUM 4.1 MEQ/L (3.5-5.1)
[2016-10-27 04:54] LABS: REVIEW FLAG FINAL
[2016-10-27] MEDS: FOSPHENYTOIN SODIUM 100 MG PE/2 ML VIAL IV SCH ×3 (06:27→21:31)
[2016-10-27] MEDS: PROPOFOL 1000 MG/100 ML INJ 100 ML IV SCH (06:27)
[2016-10-27] MEDS: fentaNYL DRIP 250 ML IV SCH (06:35)
[2016-10-27] MEDS ORDERED: ASPIRIN EC 81 MG TABEC PO ONE (08:30)
--- NOTE | 2016-10-27 08:32 | PD.CARD.PN ---
Subjective Subjective Remarks intubated, sedated Objective Vital Signs / I&O Vital Signs Date Time Temp Pulse Resp B/P Pulse Ox O2 Delivery O2 Flow Rate FiO2 10/27/16 06:00 68 125/70 116/54 10/27/16 06:00 106 10/27/16 04:24 100 40 10/27/16 04:00 40 10/27/16 04:00 104 10/27/16 04:00 97.7 104 18 125/72 100 114/66 10/27/16 02:00 105 10/27/16 00:32 100 40 10/27/16 00:00 40 10/27/16 00:00 108 10/27/16 00:00 97.7 108 19 120/67 100 111/64 10/26/16 22:00 109 10/26/16 20:35 100 40 10/26/16 20:00 40 10/26/16 20:00 97.7 113 18 133/73 100 115/66 10/26/16 20:00 113 10/26/16 18:00 107 10/26/16 18:00 68 118/64 106/61 10/26/16 16:41 100 40 10/26/16 16:00 104 10/26/16 16:00 97.3 104 18 114/63 99 92/52 10/26/16 16:00 40 10/26/16 14:57 96.8 10/26/16 14:00 99 10/26/16 13:33 100 40 10/26/16 12:00 91 10/26/16 12:00 40 10/26/16 12:00 95.2 90 18 118/68 98/59 10/26/16 10:07 0 40 10/26/16 10:00 71 10/26/16 09:30 68 112/70 99/60 I/O 10/26/16 10/26/16 10/26/16 10/27/16 10/27/16 10/27/16 07:00 15:00 23:00 07:00 15:00 23:00 Intake Total 633 ml 970 ml 916 ml 708 ml Output Total 250 ml 100 ml 125 ml 200 ml Balance 383 ml 870 ml 791 ml 508 ml Intake IV Total 633 ml 970 ml 916 ml 708 ml Output Urine Total 150 ml 100 ml 125 ml 200 ml Gastric Drainage Total 100 ml 0 ml # Bowel Movements 0 Physical Exam GENERAL: SKIN: Warm and dry. HEAD: Normocephalic. EYES: No scleral icterus. No injection or drainage. NECK: Supple, trachea midline. No JVD or lymphadenopathy. CARDIOVASCULAR: Regular rate and rhythm without murmurs, gallops, or rubs. RESPIRATORY: Breath sounds equal bilaterally. No accessory muscle use. GASTROINTESTINAL: Abdomen soft, non-tender, nondistended. MUSCULOSKELETAL: No cyanosis, or edema. BACK: Nontender without obvious deformity. No CVA tenderness. Laboratory Laboratory Tests Test 10/26/16 10/26/16 10/26/16 10/27/16 11:00 13:20 14:30 04:11 Troponin I 0.15 NG/ML 0.60 NG/ML Potassium Level 3.4 MEQ/L 4.1 MEQ/L White Blood Count 18.6 TH/MM3 Red Blood Count 3.84 MIL/MM3 Hemoglobin 9.1 GM/DL Hematocrit 29.1 % Mean Corpuscular Volume 75.9 FL Mean Corpuscular Hemoglobin 23.8 PG Mean Corpuscular Hemoglobin 31.4 % Concent Red Cell Distribution Width 17.2 % Platelet Count 269 TH/MM3 Mean Platelet Volume 8.2 FL Activated Partial 32.4 SEC Thromboplast Time Sodium Level 145 MEQ/L Chloride Level 113 MEQ/L Carbon Dioxide Level 22.9 MEQ/L Anion Gap 9 MEQ/L Blood Urea Nitrogen 32 MG/DL Creatinine 1.14 MG/DL Estimat Glomerular Filtration 59 ML/MIN Rate Random Glucose 167 MG/DL Calcium Level 8.1 MG/DL Assessment and Plan Problem List: (1) Cardiac microvascular disease (2) COPD (chronic obstructive pulmonary disease) (3) HLD (hyperlipidemia) (4) NSTEMI (non-ST elevated myocardial infarction) (5) Endothelial dysfunction of coronary artery (6) CAD (coronary artery disease) (7) HTN (hypertension) (8) DM (diabetes mellitus) (9) ACS (acute coronary syndrome) (10) Cardiopulmonary arrest with successful resuscitation (11) Pulmonary edema Assessment and Plan 1.) Cardiomyopathy/severe mr/endothelial dysfunction s/p cardiac arrest - suspicous for slow lad flow as seen on prior cath, hypothermia protocol per echocardiologist, supportive care on vent, milronone, renal consult for possible cardio-renal syndrome, start asa 81 mg qd Problem Qualifiers (1) Pulmonary edema: Qualified Code: J81.0 - Acute pulmonary edema Darron Willams MD Oct 27, 2016 08:32
[2016-10-27] MEDS: CHLORHEXIDINE 0.12% (ORAL KIT) 15 ML CUP MT SCH ×2 (08:51→21:40)
[2016-10-27] MEDS: PANTOPRAZOLE SODIUM 40 MG VIAL IV SCH (08:51)
[2016-10-27] MEDS: ARTIFICIAL TEARS OPTH OINT 3.5 APPLIC/3.5 GM TUBO EACH EYE SCH ×2 (08:52→21:37)
[2016-10-27] MEDS ORDERED: Vancomycin Consult Pharmacy 1 EA OTHER SCH (09:45)
--- NOTE | 2016-10-27 09:45 | HHI.CCPN ---
Subjective Remarks/Hospital Course Hospital Course: 56-year-old female with past medical history of hypertension, Coronary artery disease with multiple stents, Chronic systolic heart failure with ejection fraction of 45%, diabetes mellitus, stroke in 2008. She presented to [facility] emergency department via [facility] following asystolic cardiac arrest. Patient is not able to provide history. Some history was obtained from patient's sister, Thea Solares. Reportedly she had been having some epigastric discomfort since 10/24 afternoon as well as SOB. She was able to drive herself to the hospital to visit another family member. She later went home with her who is not in good health. She was walking down the [place] and began to call for help and then collapsed. She had previously called [employer] herself a few minutes before. Bystander CPR was not initiated. [facility] reportedly arrived 3 minutes after her collapse and she was in asystole. She was given Epi x4, bicarb x1, Narcan 2 mg , calcium, and Combitube was placed. She had ROSC upon arrival to ED. She was intubated by ED physician. She was noted to have a seizure in the ED that initially improved with ativan 2 mg IV but then recurred. She was loaded with fosphenytoin. She was given cardizem 15 mg IV for Afib RVR. She received cefepime, azithromycin 500 mg IV, and Lasix 40 g IV in the ED. CT brain is negative. CT pulmonary artery is negative for PE. There is pulmonary edema and bilateral lower lobe consolidation. Subjective: 10/26: starting rewarming this morning. hypotensive. echo with severe LV dysfunction. connected pulse contour analysis with CI 1.9, oliguria, evidence of cardiogenic shock. otherwise remains deeply sedated and paralyzed. 10/27: re-warmed. hypotensive yesterday requiring vasopressors and addition of pulse contour analysis demonstrating poor cardiac output, initiation of milrinone which improved cardiac output. sedation on hold, poor neurologic exam. EEG being done on my examination today with low voltage. Objective Vital Signs Date Time Temp Pulse Resp B/P Pulse Ox O2 Delivery O2 Flow Rate FiO2 10/27/16 06:00 68 125/70 116/54 10/27/16 04:24 100 40 10/27/16 04:00 97.7 18 10/24/16 22:45 Ventilator Intake and Output 10/26/16 10/26/16 10/27/16 08:00 16:00 00:00 Intake Total 633 ml 970 ml 916 ml Output Total 250 ml 100 ml 125 ml Balance 383 ml 870 ml 791 ml Result Diagram: 10/27/1641010/27/16410 Objective Remarks GENERAL: Obese female who is orotracheally intubated. SKIN: cool, dry. HEAD: Atraumatic. Normocephalic. EYES: pupils equal, sluggishly reactive. ENT: No nasal bleeding or discharge. Mucous membranes pink and moist. NECK: Trachea midline. Unable to appreciate JVD CARDIOVASCULAR: Regular rate and rhythm, sinus rhythm on the monitor. No murmurs rubs or gallops. RESPIRATORY: equal chest rise. coarse bilateral breath sounds. GASTROINTESTINAL: Abdomen soft, non-tender, nondistended. no guarding. MUSCULOSKELETAL: Extremities without clubbing, cyanosis. There is 1+ pedal edema bilaterally. NEUROLOGICAL: Off sedation, - cough. - gag. - corneals. pupils 2mm, sluggishly reactive. GCS 3. no movement in lower extremities to stimulation. A/P Assessment and Plan Assessment: 56yF s/p [id number] cardiac arrest that appears to be ischemic from CAD in nature. We will continue off sedation. f/u EEG. will plan to obtain MRI for eval of possible anoxic injury. cardiogenic shock improved on milrinone , but remains critically ill. oligoanuric DANII persists. will send urine studies and renal ultrasound. likely ATN secondary to anoxic injury. Will continue to hold sedation and eval neuro exam, but may likely have poor neurologic prognosis. NEURO: Coma post cardiac arrest, concern for hypoxic ischemic encephalopathy Seziures Peripheral neuropathy Depression Stroke 2008 hold all sedation. RASS goal 0. off nimbex. Hold Neurontin for now. CT brain 10/25 no acute normality Fosphenytoin 1000 mg/PE IV followed by 100 mg/PE q8 hours. F/u EEG. MRI today avoid hyperthermia. RESP: Acute respiratory failure Pulmonary edema Pneumonia History of tobacco abuse Ventilator bundle. ACV TV 500 R18 PEEP 5 FIO2 40%. Wean FIO2 as tolerated but no CPAP trials until neuro exam improves. CTA neg for PE, +bilateral pulmonary edema, bibasilar consolidation CV: Asystolic cardiac arrest Coronary artery disease Chronic systolic heart failure History of hypertension Hyperlipidemia Cardiogenic shock Serial cardiac markers, serial EKG continue milrinone at 0.5 mcg/kg/min Given ASA 161 in ED. Heparin drip. echo with severe left ventricular systolic dysfunction now off norepinephrine. may titrate for goal map > 65 mmHg. GI: GERD Obesity start TF today. Protonix for stress ulcer plus prophylaxis as per below FEN/RENAL: DANII overlying CKD stage III Lactic acidemia- resolving. Pablo in place. Monitor intake and output. Replace electrolyte as indicated. Order urine electrolytes, urine eos, complement levels, renal ultrasound. DANII likely ATN from anoxic injury on top of CKD 3. ID: UTI Probable aspiration pneumonia U/a with 12 WBC, rare bacteria. Followup urine culture 10/25 blood culture: pleomorphic G+ 10/25 urine culture: pleomorphic G+ --add vancomycin 20mg/kg once, with pharmacy dosing until speciation of G+. Continue coverage with azithromycin, cefepime, Flagyl. HEME: Chronic anemia Monitor CBC does not meet transfusion triggers at this time. ENDO: Diabetes mellitus Medium dose insulin sliding scale at bedside glucose every 4 hours Hypothyroidism Checked TSH which resulted as normal. PROPH: Heparin drip which will also provide DVT prophylaxis. Protonix 40 mg IV daily for stress ulcer prophylaxis. ACCESS: Peripheral IV. Left femoral heat exchange catheter placed 10/25/16. right radial art line 10/25. will place upper extremity CVL for central pressure monitoring and d/c femoral heat exchange catheter. Patient's sister, Thea Valdez, states that she is patients healthcare surrogate. Critical Care time: excess of 44 minutes, exclusive of separately billable procedures. Kwasi Pollard MD Oct 27, 2016 09:45
[2016-10-27] MEDS: CEFEPIME INJ 2,000 MG in SODIUM CHLORIDE 0.9% INJ 100 ML IV SCH ×2 (10:28→21:31)
[2016-10-27] MEDS ORDERED: VANCOMYCIN INJ 1,850 MG in SODIUM CHLORID 0.9% 500 ML INJ 500 ML IV ONE (11:00)
[2016-10-27 12:32] LABS: APTT (PATIENT) 33.1 SEC (24.3-30.1)
[2016-10-27 12:53] LABS: BICARBONATE 22.6 MEQ/L (21.0-32.0); POTASSIUM 4.2 MEQ/L (3.5-5.1)
--- NOTE | 2016-10-27 13:08 | RADRPT ---
EXAM DATE/TIME: 10/27/2016 12:21 [facility] COMPARISON: No previous studies available for comparison. INDICATIONS : Altered mental status. MEDICAL HISTORY : Hypertension. Diabetes mellitus type 2. Congestive heart failure. Chronic kidne y disease. SURGICAL HISTORY : Coronary artery stent. Appendectomy. ENCOUNTER: Initial ACUITY: 1 day PAIN SCORE: 0/10 LOCATION: cranial TECHNIQUE: Multiplanar, multisequence MRI of the brain was performed without contrast. FINDINGS: There is some generalized increased density in the hammer matter seen on the diffusion images that can be seen with anoxic brain injury. There is no generalized edema as yet. There are no extra-axial fluid collections appreciated. There is no parenchymal hemorrhage. Posterior fossa is unremarkable and spared of hammer matter changes. CONCLUSION: Generalized increased signal in the hammer matter. This can be seen with an anoxic event. Sabas Purdy MD FACR on October 27, 2016 at 12:56 Board Certified Radiologist. This report was verified electronically.
[2016-10-27 13:28] LABS: BACTERIA, URINE RARE /hpf; BLOOD, URINE LARGE (NEG); GLUCOSE,URINE NEG (NEG); KETONE, URINE 10 mg/dL (NEG); MUCUS URINE FEW /lpf (OCC); NITRITE,URINE NEG (NEG); PH, URINE 5.5 (5.0-8.5); SQUAMOUS EPITHELIAL CELL URINE <1 /hpf (0-5)
[2016-10-27 13:39] LABS: URINE COLOR AMBER (YELLW/STRAW)
--- NOTE | 2016-10-27 16:26 | RADRPT ---
EXAM DATE/TIME: 10/27/2016 15:53 [facility] COMPARISON: CHEST SINGLE AP, October 25, 2016, 9:56. INDICATIONS : Evaluate for left sided central line placement. MEDICAL HISTORY : Hypertension. Myocardial infarction. Diabetes mellitus type II. GERD. SURGICAL HISTORY : Coronary artery stent. ENCOUNTER: Subsequent ACUITY: 1 day PAIN SCORE: Non-responsive. LOCATION: chest FINDINGS: Interval placement of left internal jugular catheter with tip projected in the right atrium. No evid ence of pneumothorax. Endotracheal tube tip well above the jody. Gastric tube traverses the field -of-view. There is increasing consolidation in the left mid and lower lung with loss of delineation of portions of the left hemidiaphragm and multiple air bronchograms. Some patchy perihilar infiltrat es are present on the right. CONCLUSION: Central line in good position. No evidence pneumothorax. Increasing consolidation left lower lobe. Carlton Parrish MD on October 27, 2016 at 16:24 Board Certified Radiologist. This report was verified electronically.
--- NOTE | 2016-10-27 16:44 | MG ---
cc: LUCIA HEREDIA Lab No: [id number] Date: 10/27/16 Age: 56 Sex: F Race: A 56-year-old, hyperventilation not performed, cardiac arrest. Thyroid disease. Cerebyx Fentanyl Recording is synchronous and symmetric, low amplitude rhythm with what looks like some occasional vertex sharp wave. Mostly the background is depressed. Some muscle artifact is noted. No hemisphere asymmetries seen. Photic stimulation was performed without significant posterior driving. Generally, the recording however is of an extremely low amplitude. IMPRESSION Attenuated background, could be medication effect versus diffuse encephalopathy. Occasional what appear to be vertex sharp waves are noted in the form of a theta wave sharply contoured with phase reversal over the midline head region. Clinical correlation is needed. No seizure activity is noted and no hemisphere asymmetry was seen. MD MYKEL Ye/ /4:30 PM /4:37 PM
--- NOTE | 2016-10-27 18:04 | PD.PROCEDR ---
Procedure Note Procedure Central Line Procedure Note Left IJ 7 Yi triple-lumen catheter Diagnosis: Status post out of hospital cardiac arrest Indications: And need for central pressure monitoring, need for highly potent vasoactive substances Consent: Written consent was obtained Anesthesia: None Description of the Procedure: The patient was placed in the supine, mild- Trendelenburg position. The area was prepped and draped sterilely. A 19g needle was inserted under negative pressure aspiration and dark venous blood was obtained. A guidewire was inserted easily without resistance. A small incision was made using a #11 blade. Using a modified Seldinger technique, the dilator and 7 Yi, 20 cm catheter were advanced over the guidewire without resistance. All ports were aspirated and flushed, and had brisk blood return. The line was secured at 18 cm at the skin using 2-0 silk interrupted sutures. A Biopatch and Transparent sterile dressing were applied. There were no immediate complications noted. There was minimal EBL. The patient tolerated the procedure well. Ultrasound Guidance: Ultrasound guidance was used to identify the left internal jugular vein. The vascular anatomy of the left anterior neck was normal. The vessel was cannulated under direct, real-time ultrasound visualization. After placement of the guidewire, confirmation of the guidewire in the lumen of the vessel was made using ultrasound visualization, before dilation of the tract. A Chest x-ray has been ordered. I personally performed the procedure. Kwasi Pollard MD Oct 27, 2016 18:04
[2016-10-27] MEDS: AZITHROMYCIN INJ 500 MG in SODIUM CHLOR 0.9% 250 ML INJ 250 ML IV SCH (21:30)
[2016-10-27] MEDS: METOPROLOL TARTRATE 5 MG/5 ML VIAL IV PUSH PRN (21:31)
[2016-10-27] MEDS: ACETAMINOPHEN 650 MG/20.3 ML UDC NG PRN (21:31)
[2016-10-28] VITALS (18 sets, daily range): BP systolic 92–127; BP diastolic 51–67; PULSE 91–150; RESP 18–19; TEMP 99.7–100.9; O2SAT 98–100
--- NOTE | 2016-10-28 00:10 | RADRPT ---
EXAM DATE/TIME: 10/27/2016 22:05 [facility] COMPARISON: CT ABDOMEN & PELVIS W CONTRAST, October 24, 2016, 22:12. INDICATIONS : Increased BUN and Creatinine. MEDICAL HISTORY : Myocardial infarction. Gastroesophageal reflux disease. Hypercholesterolemia. Thyroid disease. Cerebr ovascular accident. Migraines. Afib. Hypertension. . Arthritis. Bulging discs in back. Diabe raf. SURGICAL HISTORY : Coronary artery stent. Appendectomy. ENCOUNTER: Initial ACUITY: 1 day PAIN SCORE: Nonresponsive. LOCATION: Bilateral flank MEASUREMENTS: RIGHT KIDNEY: 10.6 x 5.3 x 4.3 cm LEFT KIDNEY: 10.9 x 5.0 x 5.3 cm FINDINGS: RIGHT KIDNEY: Renal cortex is normal in thickness and echotexture. No hydronephrosis, stone, or mass. There is tr darian perinephric fluid. LEFT KIDNEY: Renal cortex is normal in thickness and echotexture. No hydronephrosis, stone, or mass. BLADDER: Decompressed with a Pablo catheter present. Therefore, the bladder is not adequately evaluated. CONCLUSION: There is no hydronephrosis or acute abnormality. There is trace right perinephric fluid. Branden Irene MD on October 28, 2016 at 0:03 Board Certified Radiologist. This report was verified electronically.
[2016-10-28] MEDS: INSULIN ASPART SUPPLEMENTAL SCALE SQ SCH ×6 (00:30→20:30)
[2016-10-28] MEDS: METOPROLOL TARTRATE 5 MG/5 ML VIAL IV PUSH PRN (03:46)
[2016-10-28] MEDS: metroNIDAZOLE 500 MG INJ 100 ML IV SCH ×3 (03:47→20:00)
[2016-10-28] MEDS: RESP: ALBUTEROL 2.5 MG/IPRATROPIUM 0.5 MG NEB (SCH) INH ×4 (03:53→20:28)
[2016-10-28] MEDS: CHLORHEXIDINE GLUCONATE 2 % 1 PACK (2 CLOTHS) TOP SCH (04:00)
[2016-10-28] MEDS: DILTIAZEM 125 MG/NS 100 ML IV SCH ×4 (04:31→10:58)
[2016-10-28] MEDS: FOSPHENYTOIN SODIUM 100 MG PE/2 ML VIAL IV SCH ×2 (05:27→13:31)
[2016-10-28 05:42] LABS: MEAN CORPUSCULAR HEMOGLOBIN 23.8 PG (27.0-34.0); MEAN CORPUSCULAR HGB CONC 30.9 % (32.0-36.0); PLATELET COUNT 215 TH/MM3 (150-450); RED BLOOD COUNT 3.51 MIL/MM3 (4.00-5.30); RED CELL DISTRIBUTION WIDTH 17.5 % (11.6-17.2); WHITE BLOOD COUNT 15.4 TH/MM3 (4.0-11.0)
[2016-10-28 05:46] LABS: REVIEW FLAG FINAL
[2016-10-28] MEDS: MILRINONE INJ 20 MG in SODIUM CHLORIDE 0.9% INJ 80 ML IV SCH ×2 (05:47→13:31)
[2016-10-28 06:29] LABS: BICARBONATE 22.7 MEQ/L (21.0-32.0)
[2016-10-28] MEDS: PANTOPRAZOLE SODIUM 40 MG VIAL IV SCH (08:08)
[2016-10-28] MEDS: ASPIRIN EC 81 MG TABEC PO SCH (08:09)
[2016-10-28] MEDS: CHLORHEXIDINE 0.12% (ORAL KIT) 15 ML CUP MT SCH ×2 (08:10→20:00)
[2016-10-28] MEDS: ARTIFICIAL TEARS OPTH OINT 3.5 APPLIC/3.5 GM TUBO EACH EYE SCH (08:10)
--- NOTE | 2016-10-28 10:39 | HHI.CCPN ---
Subjective Remarks/Hospital Course Hospital Course: 56-year-old female with past medical history of hypertension, Coronary artery disease with multiple stents, Chronic systolic heart failure with ejection fraction of 45%, diabetes mellitus, stroke in 2008. She presented to [facility] emergency department via E [facility] following asystolic cardiac arrest. Patient is not able to provide history. Some history was obtained from patient's sister, Thea Solares. Reportedly she had been having some epigastric discomfort since 10/24 afternoon as well as SOB. She was able to drive herself to the hospital to visit another family member. She later went home with her who is not in good health. She was walking down the [address] and began to call for help and then collapsed. She had previously called [facility] herself a few minutes before. Bystander CPR was not initiated. [facility] reportedly arrived 3 minutes after her collapse and she was in asystole. She was given Epi x4, bicarb x1, Narcan 2 mg , calcium, and Combitube was placed. She had ROSC upon arrival to ED. She was intubated by ED physician. She was noted to have a seizure in the ED that initially improved with ativan 2 mg IV but then recurred. She was loaded with fosphenytoin. She was given cardizem 15 mg IV for Afib RVR. She received cefepime, azithromycin 500 mg IV, and Lasix 40 g IV in the ED. CT brain is negative. CT pulmonary artery is negative for PE. There is pulmonary edema and bilateral lower lobe consolidation. Subjective: 10/26: starting rewarming this morning. hypotensive. echo with severe LV dysfunction. connected pulse contour analysis with CI 1.9, oliguria, evidence of cardiogenic shock. otherwise remains deeply sedated and paralyzed. 10/27: re-warmed. hypotensive yesterday requiring vasopressors and addition of pulse contour analysis demonstrating poor cardiac output, initiation of milrinone which improved cardiac output. sedation on hold, poor neurologic exam. EEG being done on my examination today with low voltage. 10/28: MRI yesterday consistent with severe anoxic injury. persistently encephalopathic. no meaningful movements. GCS 3. went into afib RVR overnight, placed on cardizem drip. will need to speak with family now that all studies are back. likely no hope of neurologic recovery. Objective Vital Signs Date Time Temp Pulse Resp B/P Pulse Ox O2 Delivery O2 Flow Rate FiO2 10/28/16 10:00 93 10/28/16 09:07 100 35 10/28/16 08:00 99.7 19 117/67 114/58 10/24/16 22:45 Ventilator Intake and Output 10/27/16 10/27/16 10/28/16 08:00 16:00 00:00 Intake Total 708 ml 975 ml Output Total 200 ml 300 ml 0 ml Balance 508 ml 675 ml 0 ml Result Diagram: 10/28/16 0440 10/28/16 0440 Other Results Microbiology Date/Time Procedure Status Source Growth 10/25/16 13:30 Gram Stain - Final Complete Sputum Endotracheal 10/25/16 13:30 Sputum Culture - Final Complete Sputum Endotracheal HEAVY GROWTH NORMAL RESPIRATORY BRYANT Objective Remarks GENERAL: Obese female who is orotracheally intubated. SKIN: cool, dry. HEAD: Atraumatic. Normocephalic. EYES: pupils equal, sluggishly reactive. ENT: No nasal bleeding or discharge. Mucous membranes pink and moist. NECK: Trachea midline. Unable to appreciate JVD CARDIOVASCULAR: Regular rate and rhythm, sinus rhythm on the monitor. No murmurs rubs or gallops. RESPIRATORY: equal chest rise. coarse bilateral breath sounds. GASTROINTESTINAL: Abdomen soft, non-tender, nondistended. no guarding. MUSCULOSKELETAL: Extremities without clubbing, cyanosis. There is 1+ pedal edema bilaterally. NEUROLOGICAL: Off sedation, + cough. + gag. - corneals. pupils 2mm, sluggishly reactive. GCS 3. no movement in lower extremities to stimulation. A/P Assessment and Plan Assessment: 56yF s/p [id number] cardiac arrest that appears to be ischemic from CAD in nature. We will continue off sedation. EEG and MRI suggestive of severe anoxic injury. Acute kidney injury persists, urine electrolytes suggestive of pre-renal physiology, likely secondary to poor perfusion to the kidney. uop improved over last 24h. Continue off sedation. will talk with family today. poor neurologic prognosis. For now, our goals remain aggressive and she remains critically ill. NEURO: Hypoxic Ischemic Encephalopathy Seziures Peripheral neuropathy Depression Stroke 2008 hold all sedation. RASS goal 0. off nimbex. Hold Neurontin for now. CT brain 10/25 no acute normality Fosphenytoin 1000 mg/PE IV followed by 100 mg/PE q8 hours. EEG- low voltage. MRI 10/27: suggestive of severe anoxic injury avoid hyperthermia. RESP: Acute respiratory failure Pulmonary edema Pneumonia History of tobacco abuse Ventilator bundle. ACV TV 500 R18 PEEP 5 FIO2 40%. Wean FIO2 as tolerated but no CPAP trials until neuro exam improves. CTA neg for PE, +bilateral pulmonary edema, bibasilar consolidation CV: Asystolic cardiac arrest Coronary artery disease Chronic systolic heart failure History of hypertension Hyperlipidemia Cardiogenic shock Tachycardia Serial cardiac markers, serial EKG continue milrinone at 0.5 mcg/kg/min Given ASA 161 in ED. Heparin drip. echo with severe left ventricular systolic dysfunction now off norepinephrine. may titrate for goal map > 65 mmHg. continue cardizem for tachycardia, now back in NSR. GI: GERD Obesity Nepro at goal. Protonix for stress ulcer plus prophylaxis as per below FEN/RENAL: DANII overlying CKD stage III Lactic acidemia- resolving. Pablo in place. Monitor intake and output. Replace electrolyte as indicated. DANII likely ATN from anoxic injury on top of CKD 3. ID: UTI Probable aspiration pneumonia U/a with 12 WBC, rare bacteria. Followup urine culture 10/25 blood culture: pleomorphic G+ 10/25 urine culture: pleomorphic G+ --vanc with pharmacy dosing. Continue coverage with azithromycin, cefepime, Flagyl. HEME: Chronic anemia Monitor CBC does not meet transfusion triggers at this time. ENDO: Diabetes mellitus Medium dose insulin sliding scale at bedside glucose every 4 hours Hypothyroidism Checked TSH which resulted as normal. PROPH: Heparin drip which will also provide DVT prophylaxis. Protonix 40 mg IV daily for stress ulcer prophylaxis. ACCESS: Peripheral IV. right radial art line 10/25. left IJ TLC 10/27. Patient's sister, Thea Valdez, states that she is patients healthcare surrogate. Critical Care time: excess of 38 minutes, exclusive of separately billable procedures. Kwasi Pollard MD Oct 28, 2016 10:39
[2016-10-28] MEDS: CEFEPIME INJ 2,000 MG in SODIUM CHLORIDE 0.9% INJ 100 ML IV SCH (10:54)
[2016-10-28] MEDS ORDERED: VANCOMYCIN INJ 1,500 MG in SODIUM CHLORID 0.9% 500 ML INJ 500 ML IV SCH (11:00)
--- NOTE | 2016-10-28 11:01 | PD.CARD.PN ---
Subjective Subjective Remarks intubated, unresponsive Objective Vital Signs / I&O Vital Signs Date Time Temp Pulse Resp B/P Pulse Ox O2 Delivery O2 Flow Rate FiO2 10/28/16 10:00 93 10/28/16 09:07 100 35 10/28/16 08:00 40 10/28/16 08:00 93 10/28/16 08:00 99.7 93 19 117/67 100 114/58 10/28/16 06:00 114 104/62 103/55 10/28/16 06:00 114 10/28/16 04:02 100 40 10/28/16 04:00 114 10/28/16 04:00 40 10/28/16 04:00 99.7 150 18 98/67 100 92/65 10/28/16 02:00 114 10/28/16 01:12 100 40 10/28/16 00:00 114 10/28/16 00:00 100.4 110 18 119/62 100 114/62 10/28/16 00:00 40 10/27/16 22:00 114 10/27/16 20:23 100 40 10/27/16 20:00 114 10/27/16 20:00 40 10/27/16 20:00 100.6 157 18 116/71 100 114/67 10/27/16 18:00 114 136/74 117/64 10/27/16 18:00 114 10/27/16 16:23 94 40 10/27/16 16:00 99.7 113 18 125/68 100 91/65 10/27/16 16:00 40 10/27/16 16:00 113 10/27/16 14:00 114 10/27/16 13:05 100 100 10/27/16 13:03 96 40 10/27/16 12:00 40 10/27/16 12:00 98.7 107 26 127/75 100 120/62 10/27/16 12:00 104 I/O 10/27/16 10/27/16 10/27/16 10/28/16 10/28/16 10/28/16 07:00 15:00 23:00 07:00 15:00 23:00 Intake Total 708 ml 975 ml 1349 ml Output Total 200 ml 300 ml 0 ml 450 ml Balance 508 ml 675 ml 0 ml 899 ml Intake Oral 0 ml IV Total 708 ml 975 ml 987 ml Tube Feeding 362 ml Output Urine Total 200 ml 250 ml 450 ml Gastric Drainage Total 50 ml Tube Feeding Residual Discard 0 ml # Bowel Movements 0 Physical Exam GENERAL: SKIN: Warm and dry. HEAD: Normocephalic. EYES: No scleral icterus. No injection or drainage. NECK: Supple, trachea midline. No JVD or lymphadenopathy. CARDIOVASCULAR: Regular rate and rhythm without murmurs, gallops, or rubs. RESPIRATORY: Breath sounds equal bilaterally. No accessory muscle use. GASTROINTESTINAL: Abdomen soft, non-tender, nondistended. MUSCULOSKELETAL: No cyanosis, or edema. BACK: Nontender without obvious deformity. No CVA tenderness. Laboratory Laboratory Tests Test 10/27/16 10/28/16 10/28/16 11:55 04:40 05:45 Activated Partial 33.1 SEC 39.0 SEC Thromboplast Time Sodium Level 145 MEQ/L 145 MEQ/L Potassium Level 4.2 MEQ/L 4.0 MEQ/L Chloride Level 113 MEQ/L 114 MEQ/L Carbon Dioxide Level 22.6 MEQ/L 22.7 MEQ/L Anion Gap 9 MEQ/L 8 MEQ/L Blood Urea Nitrogen 32 MG/DL 35 MG/DL Creatinine 1.04 MG/DL 1.29 MG/DL Estimat Glomerular Filtration 66 ML/MIN 51 ML/MIN Rate Random Glucose 157 MG/DL 282 MG/DL Calcium Level 8.1 MG/DL 8.3 MG/DL Complement C3 129 MG/DL Complement C4 31 MG/DL White Blood Count 15.4 TH/MM3 Red Blood Count 3.51 MIL/MM3 Hemoglobin 8.4 GM/DL Hematocrit 27.0 % Mean Corpuscular Volume 77.0 FL Mean Corpuscular Hemoglobin 23.8 PG Mean Corpuscular Hemoglobin 30.9 % Concent Red Cell Distribution Width 17.5 % Platelet Count 215 TH/MM3 Mean Platelet Volume 8.7 FL Assessment and Plan Problem List: (1) Cardiac microvascular disease (2) COPD (chronic obstructive pulmonary disease) (3) HLD (hyperlipidemia) (4) NSTEMI (non-ST elevated myocardial infarction) (5) Endothelial dysfunction of coronary artery (6) CAD (coronary artery disease) (7) HTN (hypertension) (8) DM (diabetes mellitus) (9) ACS (acute coronary syndrome) (10) Cardiopulmonary arrest with successful resuscitation (11) Pulmonary edema Assessment and Plan 1.) Cardiomyopathy/severe mr/endothelial dysfunction s/p cardiac arrest - suspicous for slow lad flow as seen on prior cath, hypothermia completed, supportive care on vent, milronone, renal consult for possible cardio-renal syndrome, start asa 81 mg qd Problem Qualifiers (1) Pulmonary edema: Qualified Code: J81.0 - Acute pulmonary edema Darron Willams MD Oct 28, 2016 11:01
[2016-10-28] MEDS: HEPARIN INJ 25,000 UNITS in SODIUM CHLOR 0.9% 250 ML INJ 247.5 ML IV SCH (13:32)
[2016-10-28 15:19] LABS: APTT (PATIENT) 40.8 SEC (24.3-30.1)
[2016-10-28] MEDS: ACETAMINOPHEN 650 MG/20.3 ML UDC NG PRN (18:34)
[2016-10-28 19:29] LABS: APTT (PATIENT) 40.4 SEC (24.3-30.1)
[2016-10-28] MEDS: AZITHROMYCIN INJ 500 MG in SODIUM CHLOR 0.9% 250 ML INJ 250 ML IV SCH (20:00)
[2016-10-28] MEDS ORDERED: HYDROmorphone HCL PF 1 MG/ML VIAL IV PRN (21:00)
[2016-10-29] VITALS (8 sets, daily range): BP systolic 118–146; BP diastolic 56–72; PULSE 100–123; RESP 20–25; TEMP 101.3–102.3; O2SAT 98–100
[2016-10-29] MEDS: INSULIN ASPART SUPPLEMENTAL SCALE SQ SCH ×3 (00:30→08:24)
[2016-10-29] MEDS: DILTIAZEM 125 MG/NS 100 ML IV SCH ×4 (01:05→04:19)
[2016-10-29] MEDS: MILRINONE INJ 20 MG in SODIUM CHLORIDE 0.9% INJ 80 ML IV SCH ×2 (01:05→04:17)
[2016-10-29] MEDS: ARTIFICIAL TEARS OPTH OINT 3.5 APPLIC/3.5 GM TUBO EACH EYE SCH ×2 (01:06→08:24)
[2016-10-29] MEDS: CEFEPIME INJ 2,000 MG in SODIUM CHLORIDE 0.9% INJ 100 ML IV SCH (01:06)
[2016-10-29] MEDS: FOSPHENYTOIN SODIUM 100 MG PE/2 ML VIAL IV SCH ×2 (01:06→04:17)
[2016-10-29] MEDS: ACETAMINOPHEN 650 MG/20.3 ML UDC NG PRN ×2 (01:09→08:23)
[2016-10-29] MEDS: RESP: ALBUTEROL 2.5 MG/IPRATROPIUM 0.5 MG NEB (SCH) INH ×2 (04:00→07:52)
[2016-10-29] MEDS: CHLORHEXIDINE GLUCONATE 2 % 1 PACK (2 CLOTHS) TOP SCH (04:00)
[2016-10-29] MEDS: metroNIDAZOLE 500 MG INJ 100 ML IV SCH (04:18)
[2016-10-29 04:52] LABS: HEMATOCRIT 26.4 % (35.0-46.0); MEAN CELL VOLUME 76.3 FL (80.0-100.0); MEAN CORPUSCULAR HEMOGLOBIN 23.6 PG (27.0-34.0); PLATELET COUNT 224 TH/MM3 (150-450); RED BLOOD COUNT 3.46 MIL/MM3 (4.00-5.30); RED CELL DISTRIBUTION WIDTH 17.4 % (11.6-17.2); WHITE BLOOD COUNT 13.1 TH/MM3 (4.0-11.0)
[2016-10-29 05:02] LABS: REVIEW FLAG FINAL
[2016-10-29 05:08] LABS: APTT (PATIENT) 41.3 SEC (24.3-30.1)
[2016-10-29 05:15] LABS: BICARBONATE 23.2 MEQ/L (21.0-32.0); POTASSIUM 4.1 MEQ/L (3.5-5.1)
[2016-10-29] MEDS: ASPIRIN EC 81 MG TABEC PO SCH (08:21)
[2016-10-29] MEDS: CHLORHEXIDINE 0.12% (ORAL KIT) 15 ML CUP MT SCH (08:22)
[2016-10-29] MEDS: PANTOPRAZOLE SODIUM 40 MG VIAL IV SCH (08:25)
--- NOTE | 2016-10-29 09:41 | HHI.CCPN ---
Subjective Remarks/Hospital Course Hospital Course: 56-year-old female with past medical history of hypertension, Coronary artery disease with multiple stents, Chronic systolic heart failure with ejection fraction of 45%, diabetes mellitus, stroke in 2008. She presented to [facility] emergency department via [facility] following asystolic cardiac arrest. Patient is not able to provide history. Some history was obtained from patient's sister, Thea Solares. Reportedly she had been having some epigastric discomfort since 10/24 afternoon as well as SOB. She was able to drive herself to the hospital to visit another family member. She later went home with her who is not in good health. She was walking down the [place] and began to call for help and then collapsed. She had previously called [facility] herself a few minutes before. Bystander CPR was not initiated. [facility] reportedly arrived 3 minutes after her collapse and she was in asystole. She was given Epi x4, bicarb x1, Narcan 2 mg , calcium, and Combitube was placed. She had ROSC upon arrival to ED. She was intubated by ED physician. She was noted to have a seizure in the ED that initially improved with ativan 2 mg IV but then recurred. She was loaded with fosphenytoin. She was given cardizem 15 mg IV for Afib RVR. She received cefepime, azithromycin 500 mg IV, and Lasix 40 g IV in the ED. CT brain is negative. CT pulmonary artery is negative for PE. There is pulmonary edema and bilateral lower lobe consolidation. Subjective: 10/26: starting rewarming this morning. hypotensive. echo with severe LV dysfunction. connected pulse contour analysis with CI 1.9, oliguria, evidence of cardiogenic shock. otherwise remains deeply sedated and paralyzed. 10/27: re-warmed. hypotensive yesterday requiring vasopressors and addition of pulse contour analysis demonstrating poor cardiac output, initiation of milrinone which improved cardiac output. sedation on hold, poor neurologic exam. EEG being done on my examination today with low voltage. 10/28: MRI yesterday consistent with severe anoxic injury. persistently encephalopathic. no meaningful movements. GCS 3. went into afib RVR overnight, placed on cardizem drip. will need to speak with family now that all studies are back. likely no hope of neurologic recovery. 10/29: still off sedation. neurologic exam today: spontaneous eye opening, but persistent roving eye movements. new decorticate posturing, but no corneals. no withdraw or purposeful movements. Based on the Marti 1985 VALERIANO paper, unlikely that she will have any meaningful neurologic recovery given that we are 72h after rewarming and still do not have significant improvement in neurologic function. I talked with family yesterday and they made the patient DNR. I talked again with them today and the plan is to pursue palliative withdraw of care, as the patient would not want to live in her current condition. Objective Vital Signs Date Time Temp Pulse Resp B/P Pulse Ox O2 Delivery O2 Flow Rate FiO2 10/29/16 08:00 101 10/29/16 08:00 40 10/29/16 08:00 102.3 20 146/72 99 128/58 Intake and Output 10/28/16 10/28/16 10/29/16 08:00 16:00 00:00 Intake Total 1349 ml 1158 ml Output Total 450 ml 225 ml Balance 899 ml 933 ml Result Diagram: 10/29/16 0410 10/29/16 0410 Objective Remarks GENERAL: Obese female who is orotracheally intubated. SKIN: cool, dry. HEAD: Atraumatic. Normocephalic. EYES: pupils equal, sluggishly reactive. ENT: No nasal bleeding or discharge. Mucous membranes pink and moist. NECK: Trachea midline. Unable to appreciate JVD CARDIOVASCULAR: Regular rate and rhythm, sinus rhythm on the monitor. No murmurs rubs or gallops. RESPIRATORY: equal chest rise. coarse bilateral breath sounds. GASTROINTESTINAL: Abdomen soft, non-tender, nondistended. no guarding. MUSCULOSKELETAL: Extremities without clubbing, cyanosis. There is 1+ pedal edema bilaterally. NEUROLOGICAL: Off sedation x 48h, + cough. + gag. - corneals. pupils 2mm, sluggishly reactive. roving eye movements. GCS 4. very weak extensor posturing with deep stimulation. A/P Assessment and Plan Assessment: 56yF s/p [id number] cardiac arrest that appears to be ischemic from CAD in nature. We will continue off sedation. EEG and MRI suggestive of severe anoxic injury. Acute kidney injury persists, urine electrolytes suggestive of pre-renal physiology, likely secondary to poor perfusion to the kidney. per family wishes, will pursue palliation and withdraw of care. poor neurologic prognosis. NEURO: Hypoxic Ischemic Encephalopathy- severe Seziures Peripheral neuropathy Depression Stroke 2008 hold all sedation. RASS goal 0. off nimbex. Hold Neurontin for now. CT brain 10/25 no acute normality Fosphenytoin 1000 mg/PE IV followed by 100 mg/PE q8 hours. EEG- low voltage. MRI 10/27: suggestive of severe anoxic injury avoid hyperthermia. RESP: Acute respiratory failure Pulmonary edema Pneumonia History of tobacco abuse Ventilator bundle. ACV TV 500 R18 PEEP 5 FIO2 40%. Wean FIO2 as tolerated but no CPAP trials until neuro exam improves. CTA neg for PE, +bilateral pulmonary edema, bibasilar consolidation CV: Asystolic cardiac arrest Coronary artery disease Chronic systolic heart failure History of hypertension Hyperlipidemia Cardiogenic shock Tachycardia Serial cardiac markers, serial EKG continue milrinone at 0.5 mcg/kg/min Given ASA 161 in ED. Heparin drip. echo with severe left ventricular systolic dysfunction now off norepinephrine. may titrate for goal map > 65 mmHg. continue cardizem for tachycardia, now back in NSR. GI: GERD Obesity Nepro at goal. Protonix for stress ulcer plus prophylaxis as per below FEN/RENAL: DANII overlying CKD stage III Lactic acidemia- resolving. Pablo in place. Monitor intake and output. Replace electrolyte as indicated. DANII likely ATN from anoxic injury on top of CKD 3. ID: UTI Probable aspiration pneumonia U/a with 12 WBC, rare bacteria. Followup urine culture 10/25 blood culture: pleomorphic G+ 10/25 urine culture: pleomorphic G+ --vanc with pharmacy dosing. Continue coverage with azithromycin, cefepime, Flagyl. HEME: Chronic anemia Monitor CBC does not meet transfusion triggers at this time. ENDO: Diabetes mellitus Medium dose insulin sliding scale at bedside glucose every 4 hours Hypothyroidism Checked TSH which resulted as normal. PROPH: Heparin drip which will also provide DVT prophylaxis. Protonix 40 mg IV daily for stress ulcer prophylaxis. ACCESS: Peripheral IV. right radial art line 10/25. left IJ TLC 10/27. Patient's sister, Thea Valdez, states that she is patients healthcare surrogate. When the family is ready, will pursue withdraw of care with comfort medications. Kwasi Pollard MD Oct 29, 2016 09:41
[2016-10-29] MEDS ORDERED: MORPHINE SULFATE 8 MG/ML INJ IV PUSH ONE (09:45)
[2016-10-29] MEDS ORDERED: MORPHINE SULFATE 4 MG/ML INJ IV PRN (09:45)
[2016-10-29] MEDS ORDERED: LORazepam 2 MG/ML VIAL IV ONE ×2 (09:45→15:45)
[2016-10-29] MEDS ORDERED: LORazepam 2 MG/ML VIAL IV PRN (09:45)
[2016-10-29] MEDS ORDERED: ACETAMINOPHEN 650 MG SUPP RECTAL PRN (15:45)
[2016-10-29] MEDS ORDERED: MORPHINE SULFATE 4 MG/ML INJ IV ONE (15:45)
[2016-10-30] MEDS ORDERED: PHARMACY ORDERED LAB ONE (10:45)
[2016-10-30 14:13] LABS: UR UREA/CREAT RATIO 8.85 mg/mg (())
--- NOTE | 2016-11-11 21:48 | HHI.DS ---
Summary Note Date of : Oct 29, 2016 Time Of : 1218 Admission Date Oct 24, 2016 at 21:54 Admitting Diagnosis Cardiopulmonary Arrest Diagnosis at Time of : Brief History 56-year-old female with past medical history of hypertension, Coronary artery disease with multiple stents, Chronic systolic heart failure with ejection fraction of 45%, diabetes mellitus, stroke in 2008. She presented to [facility] emergency department via [facility] following asystolic cardiac arrest. Patient is not able to provide history. Some history was obtained from patient's sister, Thea Solares. Reportedly she had been having some epigastric discomfort since 10/24 afternoon as well as SOB. She was able to drive herself to the hospital to visit another family member. She later went home with her who is not in good health. She was walking down the [place] and began to call for help and then collapsed. She had previously called [facility] herself a few minutes before. Bystander CPR was not initiated. [facility] reportedly arrived 3 minutes after her collapse and she was in asystole. She was given Epi x4, bicarb x1, Narcan 2 mg , calcium, and Combitube was placed. She had ROSC upon arrival to ED. She was intubated by ED physician. She was noted to have a seizure in the ED that initially improved with ativan 2 mg IV but then recurred. She was loaded with fosphenytoin. She was given cardizem 15 mg IV for Afib RVR. She received cefepime, azithromycin 500 mg IV, and Lasix 40 g IV in the ED. CT brain is negative. CT pulmonary artery is negative for PE. There is pulmonary edema and bilateral lower lobe consolidation. Imaging Last Impressions Renal Ultrasound 10/27/16 Signed Impressions: Service Date/Time: Thursday, October 27, 2016 22:05 - CONCLUSION: There is no hydronephrosis or acute abnormality. There is trace right perinephric fluid. Branden Irene MD Chest X-Ray 10/27/16 Signed Impressions: Service Date/Time: Thursday, October 27, 2016 15:53 - CONCLUSION: Central line in good position. No evidence pneumothorax. Increasing consolidation left lower lobe. Carlton Parrish MD Brain MRI 10/27/16 Signed Impressions: Service Date/Time: Thursday, October 27, 2016 12:21 - CONCLUSION: Generalized increased signal in the hammer matter. This can be seen with an anoxic event. Sabas Purdy MD FACR CT Angiography 10/24/161958 Signed Impressions: Service Date/Time: Monday, October 24, 2016 22:13 - CONCLUSION: 1. No evidence of pulmonary embolism. 2. Diffuse infiltrates bilaterally consistent with severe pulmonary edema versus pneumonia with more consolidated areas within the lower lobes bilaterally. 2. Cardiomegaly. 3. Endotracheal tube has its tip at the level of the jody directed towards the right mainstem bronchus. This could be pulled back 2 cm for more optimal positioning. Danis Marti MD Head CT 10/24/161948 Signed Impressions: Service Date/Time: Monday, October 24, 2016 22:13 - CONCLUSION: No acute intracranial abnormality. Air-fluid level within the right maxillary sinus. Danis Marti MD Abdomen/Pelvis CT 10/24/161948 Signed Impressions: Service Date/Time: Monday, October 24, 2016 22:12 - CONCLUSION: 1. Questionable perfusion defects involving the left kidney suggesting possible mild acute pyelonephritis. Clinical correlation is recommended. 2. Tiny ventral wall hernia within the region of the umbilicus containing only fat. 3. Bilateral pulmonary infiltrates consistent with pulmonary edema versus pneumonia. 4. Pericholecystic fluid without gallbladder distention noted. If there is clinical concern for cholecystitis a hepatobiliary scan may be helpful to confirm cystic duct obstruction. Danis Marti MD Hospital Course 10/26: starting rewarming this morning. hypotensive. echo with severe LV dysfunction. connected pulse contour analysis with CI 1.9, oliguria, evidence of cardiogenic shock. otherwise remains deeply sedated and paralyzed. 4/: re-warmed. hypotensive yesterday requiring vasopressors and addition of pulse contour analysis demonstrating poor cardiac output, initiation of milrinone which improved cardiac output. sedation on hold, poor neurologic exam. EEG being done on my examination today with low voltage. 4/2: MRI yesterday consistent with severe anoxic injury. persistently encephalopathic. no meaningful movements. GCS 3. went into afib RVR overnight, placed on cardizem drip. will need to speak with family now that all studies are back. likely no hope of neurologic recovery. 3: still off sedation. neurologic exam today: spontaneous eye opening, but persistent roving eye movements. new decorticate posturing, but no corneals. no withdraw or purposeful movements. Based on the Marti 1985 VALERIANO paper, unlikely that she will have any meaningful neurologic recovery given that we are 72h after rewarming and still do not have significant improvement in neurologic function. I talked with family yesterday and they made the patient DNR. I talked again with them today and the plan is to pursue palliative withdraw of care, as the patient would not want to live in her current condition. Despite our aggressive measures, the patient did not regain meaningful neurologic function. the family elected to pursue comfort measures and the patient was terminally extubated. She at 21:54. Kwasi Pollard MD Nov 11, 2016 21:48
== END 2016-10-29 12:18 | disposition expired ==
LOC: NEPC 19:31 → NEDA 21:54 → HIMN 10-25 02:55
PROVIDERS: ADMIT Emergency Medicine; ATTEND Emergency Medicine
PROC: 5A1955Z Respiratory Ventilation, Greater than 96 Consecutive Hours (ICD-10-PCS; principal; 2016-10-24)
PROC: 0BH17EZ Insertion of Endotracheal Airway into Trachea, Via Natural or Artificial Opening (ICD-10-PCS; 2016-10-24)
PROC: 06HM33Z Insertion of Infusion Device into Right Femoral Vein, Percutaneous Approach (ICD-10-PCS; 2016-10-25)
PROC: 02HV33Z Insertion of Infusion Device into Superior Vena Cava, Percutaneous Approach (ICD-10-PCS; 2016-10-27)
PROC: B544ZZA Ultrasonography of Left Jugular Veins, Guidance (ICD-10-PCS; 2016-10-27)
DX: I21.4 Non-ST elevation (NSTEMI) myocardial infarction (principal); R40.20 Unspecified coma; J96.00 Acute respiratory failure, unspecified whether with hypoxia or hypercapnia; N17.0 Acute kidney failure with tubular necrosis; R57.0 Cardiogenic shock; J69.0 Pneumonitis due to inhalation of food and vomit; G93.1 Anoxic brain damage, not elsewhere classified; E87.2 Acidosis; N10 Acute pyelonephritis; I50.23 Acute on chronic systolic (congestive) heart failure; I13.0 Hypertensive heart and chronic kidney disease with heart failure and stage 1 through stage 4 chronic kidney disease, or unspecified chronic kidney disease; E87.0 Hyperosmolality and hypernatremia; Z51.5 Encounter for palliative care; I48.91 Unspecified atrial fibrillation; G62.9 Polyneuropathy, unspecified; I25.10 Atherosclerotic heart disease of native coronary artery without angina pectoris; N18.3 Chronic kidney disease, stage 3 (moderate); E11.22 Type 2 diabetes mellitus with diabetic chronic kidney disease; R56.9 Unspecified convulsions; K21.9 Gastro-esophageal reflux disease without esophagitis; E66.9 Obesity, unspecified; I25.2 Old myocardial infarction; E78.5 Hyperlipidemia, unspecified; E03.9 Hypothyroidism, unspecified; F32.9 Major depressive disorder, single episode, unspecified; D64.9 Anemia, unspecified; E87.6 Hypokalemia; E83.42 Hypomagnesemia; E11.65 Type 2 diabetes mellitus with hyperglycemia; I34.0 Nonrheumatic mitral (valve) insufficiency; J44.9 Chronic obstructive pulmonary disease, unspecified; M19.90 Unspecified osteoarthritis, unspecified site; R40.2433 Glasgow coma scale score 3-8, at hospital admission; Z66 Do not resuscitate; Z68.34 Body mass index [BMI] 34.0-34.9, adult; Z86.73 Personal history of transient ischemic attack (TIA), and cerebral infarction without residual deficits; Z87.891 Personal history of nicotine dependence; Z95.5 Presence of coronary angioplasty implant and graft
CPT/HCPCS: 31500; 36556; 36600; 36620; 51702; 70450; 70551; 71010; 71275; 74177; 76775; 76937; 80048; 80053; 80076; 80185; 80307; 81001; 82550; 82552; 82570; 82805; 82948; 83605; 83690; 83735; 83880; 84100; 84132; 84300; 84443; 84484; 84540; 85007; 85027; 85610; 85730; 86160; 86850; 86900; 86901; 87040; 87070; 87086; 87205; 87641; 93005; 93306; 94002; 94003; 94640; 94664; 95819; 96365; 96367; 96375; 96376; C9113; J0456; J0692; J1644; J1815; J1940; J2060; J2250; J2260; J2270; J3010; J3370; J3480; J7030; J7040; J7050; Q2009; Q9967